=== PATIENT | female | born 1960 | race Hispanic/Latino ===

== ENCOUNTER 2018-09-30 12:09 | Inpatient (IN) | payer OTHER ==
[2018-09-30] MEDS ORDERED: Sodium Chloride 0.9% 1,000 ML IV ONE (12:27)
[2018-09-30 12:53] LABS: BASO # 0.1 K/uL (0.0-0.2); BASO % 0.4 % (0.0-2.0); LYMPH % 6.9 % (20.0-40.0); MEAN CELL VOLUME 89.6 fL (81.0-99.0); MEAN CORPUSCULAR HEMOGLOBIN 31.5 pg (27.0-31.0); MEAN CORPUSCULAR HGB CONC 35.2 g/dL (33.0-37.0); MONO # 0.8 K/uL (0.0-0.8); MONO % 5.8 % (0.0-10.0); NEUT # 12.2 K/uL (1.8-7.0); NEUT % 86.9 % (50.0-75.0); NRBC % 0.1 % (0.0-2.0); PLATELET COUNT 268 K/uL (130-400); RBC 5.38 Mil/uL (3.80-5.20); RED CELL DISTRIBUTION WIDTH 13.2 % (11.5-14.5)
[2018-09-30 12:54] LABS: WHITE BLOOD COUNT 14.1 K/uL (4.8-10.8)
--- NOTE | 2018-09-30 12:58 | C.PDOC ---
History Of Present Illness 58 y/o female,w/PMhx of diabetes, HTN, and colitis, presents to the ER complaining of multiple episodes of vomiting which began yesterday. Patient states that she went to her PMD 's office today. referred her to the ER for elevated blood pressure and blood sugar levels. She notes that her last bm was in her PMD's office today, the bm was small. Denies having fever,chills,CP,SOB nausea, and abdominal pain. Time Seen by Provider: 09/30/18 12:28 Chief Complaint (Nursing): High Blood Pressure History Per: Patient History/Exam Limitations: no limitations Onset/Duration Of Symptoms: Days Current Symptoms Are (Timing): Still Present Severity: Moderate Past Medical History Reviewed: Historical Data, Nursing Documentation, Vital Signs Vital Signs: Last Vital Signs Temp 97.6 F 09/30/18 12:22 Pulse 115 H 09/30/18 12:22 Resp 20 09/30/18 12:22 BP 223/93 H 09/30/18 12:22 Pulse Ox 99 09/30/18 12:22 - Medical History PMH: Diabetes, HTN, Hyperlipidemia Surgical History: No Surg Hx Family History: States: No Known Family Hx - Social History Hx Tobacco Use: No Hx Alcohol Use: No Hx Substance Use: No - Immunization History Hx Tetanus Toxoid Vaccination: No Hx Influenza Vaccination: No Hx Pneumococcal Vaccination: No Review Of Systems Except As Marked, All Systems Reviewed And Found Negative. Constitutional: Negative for: Fever, Chills Cardiovascular: Negative for: Chest Pain Respiratory: Negative for: Shortness of Breath Gastrointestinal: Positive for: Vomiting. Negative for: Abdominal Pain, Diarrhea Genitourinary: Negative for: Dysuria, Hematuria Physical Exam - Physical Exam Appears: Other (actively vomiting) Skin: Normal Color, Warm, Dry Head: Atraumatic, Normacephalic Eye(s): bilateral: Normal Inspection Nose: Normal Oral Mucosa: Moist Neck: Supple Chest: Symmetrical Cardiovascular: Rhythm Regular (with tachycardia) Respiratory: Normal Breath Sounds, No Rales, No Rhonchi, No Wheezing Gastrointestinal/Abdominal: Soft, No Tenderness, No Guarding, No Rebound Neurological/Psych: Oriented x3, Normal Speech ED Course And Treatment - Laboratory Results Result Diagrams: 10/04/18 08:15 03/31/19 08:15 ECG: Interpreted By Me, Viewed By Me ECG Rhythm: Sinus Tachycardia Interpretation Of ECG: Sinus Tachycardia with normal intervals, normal axises, and no ST/ T wave elevations/depressions Rate From EC O2 Sat by Pulse Oximetry: 99 (RA) Pulse Ox Interpretation: Normal - Other Rad CXR X-Ray: Viewed By Me, Read By Radiologist Interpretation: HISTORY: vomiting. COMPARISON: Chest x-ray performed 01/09/15. TECHNIQUE: Chest, one view. FINDINGS: LUNGS: No focal consolidation. Please note that chest x-ray has limited sensitivity for the detection of pulmonary masses. PLEURA: No significant pleural effusion identified. No definite pn eumothorax . CARDIOVASCULAR: Heart size appears within normal limits. No significant atherosclerotic calcification present. OSSEOUS STRUCTURES: Degenerative changes. Acromioclavicular arthropathy. VISUALIZED UPPER ABDOMEN: Elevation of the right hemidiaphragm. OTHER FINDINGS: None. IMPRESSION: No focal consolidation. - CT Scan/US CT- Abd & Pelv. Other Rad Studies (CT/US): Read By Radiologist, Radiology Report Reviewed CT/US Interpretation: Date of service: 09/30/2018. PROCEDURE: CT Abdomen and Pelvis with contrast. HISTORY: vomiting, elevated lipase. COMPARISON: None. TECHNIQUE: Contrast dose: 100 mL of Visipaque 320 intravenously. Axial and reformatted coronal and sagittal CT images of the abdomen and pelvis were obtained after IV contrast administration. Radiation dose: Total exam DLP = 670.16 mGy-cm. This CT exam was performed using one or more of the following dose reduction techniques: Automated exposure control, adjustment of the mA and/or kV according to patient size, and/or use of iterative reconstruction technique. FINDINGS: LOWER THORAX: No evidence of acute pathology at the lung bases. There is a diffuse thickening of the distal esophagus noted. LIVER: There it hepatic steatosis is noted. No evidence of discrete mass in the liver. The portal vein is patent. GALLBLADDER AND BILE DUCTS: No evidence of cholecystitis. PANCREAS: no CT evidence of pancreatitis. The pancreas is small in size. The main pancreatic duct is not dilated. SPLEEN: Unremarkable. ADRENALS: Unremarkable. No mass. KIDNEYS AND URETERS: Unremarkable. No hydronephrosis. No solid mass. VASCULATURE: Unremarkable. No aortic aneurysm. Foci of atherosclerotic calcification and mural plaque are noted in the abdominal aorta and iliac arteries. BOWEL: There is suspicious for diffuse large bowel wall thickening. Please correlate clinically for colitis. No evidence of high-grade bowel obstruction. The stomach is partially distended demonstrate mild to moderate diffuse wall thickening. APPENDIX: No evidence of appendicitis. PERITONEUM: Unremarkable. No free fluid. No free air. LYMPH NODES: Unremarkable. No enlarged lymph nodes. BLADDER: Unremarkable. REPRODU CTIVE: Unremarkable. BONES: No acute fracture. OTHER FINDINGS: None. IMPRESSION: No CT evidence of pancreatitis. Suspicious for diffuse large bowel wall thickening which may represent pancolitis. Please correlate clinically. No CT evidence of cholecystitis pancreatitis or high-grade small bowel obstruction. Medical Decision Making Medical Decision Making: Plan: --Labs --UA --ECG --CXR --IV Fluids Updates: 14:25 Case discussed with and . Patient will be admitted to ICU. 15:21 Patient's BP is 174/89. Disposition Counseled Patient/Family Regarding: Studies Performed, Diagnosis - Disposition Disposition: HOSPITALIZED Disposition Time: 14:25 Condition: IMPROVED - Clinical Impression Clinical Impression: DKA (diabetic ketoacidoses), Hypertension - Scribe Statement The provider has reviewed the documentation as recorded by the Scribe Radha Everettq Provider Attestation: All [facility] were at my direction and personally dictated by me. I have reviewed the chart and agree that the record accurately reflects my personal performance of the history, physical exam, medical decision making, and the department course for this patient. I have also personally directed, reviewed, and agree with the discharge instructions and disposition.
[2018-09-30 13:11] LABS: ALB/GLOB RATIO 1.6 (1.0-2.1); ALBUMIN 5.1 g/dL (3.5-5.0); ALT/SGPT 32 U/L (9-52); AST/SGOT 45 U/L (14-36); BLOOD UREA NITROGEN 19 mg/dL (7-17); CALCIUM 9.7 mg/dl (8.6-10.4); GFR NON-AFRICAN AMERICAN > 60
--- NOTE | 2018-09-30 13:16 | RAD ---
HISTORY: vomiting COMPARISON: Chest x-ray performed 01/09/15 TECHNIQUE: Chest, one view. FINDINGS: LUNGS: No focal consolidation. Please note that chest x-ray has limited sensitivity for the detection of pulmonary masses. PLEURA: No significant pleural effusion identified. No definite pneumothorax . CARDIOVASCULAR: Heart size appears within normal limits. No significant atherosclerotic calcification present. OSSEOUS STRUCTURES: Degenerative changes. Acromioclavicular arthropathy. VISUALIZED UPPER ABDOMEN: Elevation of the right hemidiaphragm. OTHER FINDINGS: None. IMPRESSION: No focal consolidation.
[2018-09-30 13:17] LABS: CK-MB 0.66 ng/mL (0.0-3.38)
[2018-09-30] MEDS ORDERED: (Novolin R) Insulin Human Regular 100 units/ml vial IVP ONE (13:19)
[2018-09-30 13:22] LABS: LYMPHOCYTE 8 % (20-40); MONOCYTE 4 % (0-10); NEUTROPHIL 88 % (50-75); PLATELET ESTIMATE NORMAL (NORMAL); TOTAL CELLS COUNTED 100
[2018-09-30 13:24] LABS: SQUAMOUS EPITHIAL 2 /hpf (0-5); URINE BILIRUBIN NEGATIVE (NEGATIVE); URINE BLOOD NEGATIVE (NEGATIVE); URINE CLARITY Clear (Clear); URINE COLOR Straw (YELLOW); URINE GLUCOSE (UA) 3+ mg/dL (Normal); URINE HYALINE CAST 0-2 /lpf (0-2); URINE LEUKOCYTE ESTERASE NEG Leu/uL (Negative); URINE PROTEIN 1+ mg/dL (NEGATIVE); URINE UROBILINOGEN NORMAL mg/dL (0.2-1.0)
[2018-09-30] MEDS ORDERED: (Novolin R) Insulin Human Regular 100 units/ml vial ONE (13:27)
[2018-09-30] MEDS ORDERED: Iodixanol 320 MG/ML 100 ML BOTTLE IV ONE (13:52)
[2018-09-30] MEDS ORDERED: SODIUM CHLORIDE 0.9% IV SCH (14:00)
[2018-09-30] MEDS ORDERED: INSULIN HUMAN REGULAR IV SCH (14:00)
[2018-09-30] MEDS ORDERED: Insulin Human Regular 100 UNIT in Sodium Chloride 0.9% 99 ML IV SCH ×2 (14:15→14:45)
--- NOTE | 2018-09-30 14:36 | CP.PCM.CON ---
<Shailesh Garner - Last Filed: 09/30/18 18:06> History of Present Illness - History of Present Illness History of Present Illness: ICU Consult Note for Dr. Miller 58 y o female with PMhx HTN, HLD, DM2, ulcerative colitis (dx 10 y prior), colonic polyps, presents to the ED with c/o nausea and greater than 15 episodes of vomiting occurring since last evening. Reason for ICU consult was for DKA. Reports episodes of diarrhea last evening but states she had normal forming BM this am. States that having 10 episodes of diarrhea/day is her baseline 2/2 to her ulcerative colitis. Unable to tolerate PO intake. States she went to her PMD Dr. Dumont this am with these complaints and that he instructed her to go straight to the ED for further eval. States he checked her urine sample in the clinic, positive for ketones. Pt reports last being hospitalized for hyperglycemia many years ago, denies recent admissions for DKA, reports compliance with home DM medications and checking her fingersticks regularly. Reports her has been sick at home for the past several days with cold- like symptoms. Denies fevers, chest pain, sob, abd pain, constipation, urinary complaints, or other symptoms. PMhx: as noted above PSurgHx: Bilateral tubal ligation Allergies: NKDA Home meds: Metformin 100 mg bid, Crestor 20 mg daily, Lisinopril 20 mg daily, Humalog 10 U tid with meals, Levemir 25 U at night, Mesalamine 1000 mg rectally once daily Fam hx: Father from stroke, Mom alive and well. Reports no fam hx of colon cancer. Soc hx: former 1.5 ppd cigarette smoker, quit 30 y ago; hx secondhand smoke exposure from mother; social EtOH use; denies illicit drug use; lives at home with son PMD: Dr. Dumont GI: Dr. Perez ([facility]) [facility]acy: [facility] Review of Systems - Constitutional Constitutional: Chills, Fatigue. absent: Fever - Cardiovascular Cardiovascular: absent: Chest Pain, Dyspnea, Dyspnea on Exertion, Edema, Lightheadedness, Palpitations, Syncope - Respiratory Respiratory: absent: Cough, Dyspnea, Wheezing - Gastrointestinal Gastrointestinal: Diarrhea, Nausea, Vomiting. absent: Abdominal Pain, Bloating, Change in Bowel Habits, Coffee Ground Emesis, Constipation, Heartburn, Melena - Genitourinary Genitourinary: absent: Difficulty Urinating, Dysuria - Musculoskeletal Musculoskeletal: absent: Muscle Weakness, Myalgias, Numbness, Tingling - Integumentary Integumentary: absent: Rash - Neurological Neurological: absent: Confusion, Dizziness, Headaches, Tremor Past Patient History - Past Medical History & Family History Past Medical History?: Yes - Past Social History Smoking Status: Former Smoker - CARDIAC Hx Hypertension: Yes - ENDOCRINE/METABOLIC Hx Diabetes Mellitus Type 2: Yes - MUSCULOSKELETAL/RHEUMATOLOGICAL Hx Falls: No - GASTROINTESTINAL Hx Colitis: Yes - PSYCHIATRIC Hx Substance Use: No - SURGICAL HISTORY Hx Tubal Ligation: Yes - ANESTHESIA Hx Anesthesia: Yes Hx Anesthesia Reactions: No Meds Allergies/Adverse Reactions: Allergies Allergy/AdvReac Type Severity Reaction Status Date / Time No Known Allergies Allergy Verified 12/31/14 21:34 - Medications Medications: Current Medications Insulin Human Regular 100 unit (/ Sodium Chloride) 100 mls @ 2 mls/hr IV .Q24H RUDDY Stop: 10/01/18 14:44 Physical Exam - Constitutional Appears: Non-toxic, No Acute Distress - Head Exam Head Exam: ATRAUMATIC, NORMOCEPHALIC - Eye Exam Eye Exam: EOMI, Normal appearance, PERRL - ENT Exam ENT Exam: Mucous Membranes Moist - Respiratory Exam Respiratory Exam: Clear to Auscultation Bilateral, NORMAL BREATHING PATTERN. absent: Rales, Rhonchi, Wheezes - Cardiovascular Exam Cardiovascular Exam: +S1, +S2. absent: Gallop, Rubs, Systolic Murmur - GI/Abdominal Exam GI & Abdominal Exam: Normal Bowel Sounds, Soft. absent: Distended, Organomegaly, Tenderness - Extremities Exam Extremities exam: Positive for: full ROM, normal capillary refill, normal inspection, pedal pulses present. Negative for: pedal edema - Neurological Exam Neurological exam: Alert, CN II-XII Intact, Oriented x3 - Skin Skin Exam: Dry, Intact, Warm Results - Vital Signs Recent Vital Signs: Last Vital Signs Temp 97.6 F 09/30/18 12:22 Pulse 115 H 09/30/18 12:22 Resp 20 09/30/18 12:22 BP 223/93 H 09/30/18 12:22 Pulse Ox 99 09/30/18 14:35 - Labs Result Diagrams: 09/30/18 16:40 09/30/18 16:40 Labs: Laboratory Results - last 24 hr 09/30/18 09/30/18 09/30/18 12:25 12:48 12:48 WBC 14.1 H D RBC 5.38 H Hgb 17.0 H D Hct 48.3 H MCV 89.6 MCH 31.5 H MCHC 35.2 RDW 13.2 Plt Count 268 MPV 9.0 Neut % (Auto) 86.9 H Lymph % (Auto) 6.9 L [place] % (Auto) 5.8 Eos % (Auto) 0.0 Baso % (Auto) 0.4 Neut # (Auto) 12.2 H Lymph # (Auto) 1.0 [place] # (Auto) 0.8 Eos # (Auto) 0.0 Baso # (Auto) 0.1 Neutrophils % (Manual) 88 H Lymphocytes % (Manual) 8 L Monocytes % (Manual) 4 Platelet Estimate Normal Sodium 133 Potassium 3.7 Chloride 91 L Carbon Dioxide 22 Anion Gap 23 H BUN 19 H Creatinine 0.7 Est GFR ( Amer) > 60 Est GFR (Non-Af Amer) > 60 POC Glucose (mg/dL) 430 H* Random Glucose 524 H* D Calcium 9.7 Total Bilirubin 1.0 AST 45 H ALT 32 Alkaline Phosphatase 126 Total Creatine Kinase 30 CK-MB (Mass) 0.66 Troponin I < 0.0120 Total Protein 8.2 Albumin 5.1 H D Globulin 3.1 Albumin/Globulin Ratio 1.6 Lipase Urine Color Urine Clarity Urine pH Ur Specific [place] Urine Protein Urine Glucose (UA) Urine Ketones Urine Blood Urine Nitrate Urine Bilirubin Urine Urobilinogen Ur Leukocyte Esterase Urine WBC (Auto) Urine RBC (Auto) Ur Squamous Epith Cells Hyaline Casts B-Hydroxybutyrate 1.97 H 09/30/18 09/30/18 09/30/18 12:55 13:08 14:28 WBC RBC Hgb Hct MCV MCH MCHC RDW Plt Count MPV Neut % (Auto) Lymph % (Auto) [place] % (Auto) Eos % (Auto) Baso % (Auto) Neut # (Auto) Lymph # (Auto) [place] # (Auto) Eos # (Auto) Baso # (Auto) Neutrophils % (Manual) Lymphocytes % (Manual) Monocytes % (Manual) Platelet Estimate Sodium Potassium Chloride Carbon Dioxide Anion Gap BUN Creatinine Est GFR ( Amer) Est GFR (Non-Af Amer) POC Glucose (mg/dL) 276 H Random Glucose Calcium Total Bilirubin AST ALT Alkaline Phosphatase Total Creatine Kinase CK-MB (Mass) Troponin I Total Protein Albumin Globulin Albumin/Globulin Ratio Lipase 359 H Urine Color Straw Urine Clarity Clear Urine pH 5.0 Ur Specific [place] 1.029 Urine Protein 1+ H Urine Glucose (UA) 3+ H Urine Ketones 2+ H Urine Blood Negative Urine Nitrate Negative Urine Bilirubin Negative Urine Urobilinogen Normal Ur Leukocyte Esterase Neg Urine WBC (Auto) < 1 Urine RBC (Auto) < 1 Ur Squamous Epith Cells 2 Hyaline Casts 0-2 B-Hydroxybutyrate Assessment & Plan - Assessment and Plan (Free Text) Assessment: 58 y o female with PMhx HTN, HLD, DM2, ulcerative colitis (dx 10 y prior), colonic polyps, presents to the ED with c/o nausea and greater than 15 episodes of vomiting occurring since last evening. Reason for ICU consult was for DKA. Admitted to ICU, insulin drip currently d/c'd after anion gap closed, on IVF. CT abd/pelvis on admission demonstrated pancolitis, GI consulted (Dr. Leon). Will continue to monitor. Plan: Neuro: -AAOx3, no gross deficits appreciated on exam -Cont to monitor Cardio: -Hypertensive during vomiting episodes, cont to trend -Resumed home PO meds for HTN -EKG on admission demonstrates sinus tachycardia, possible L atrial enlargement -Repeat EKG in am to eval interval change -Echo ordered -Trop neg on admission, ROMIs q8h pending, cont to trend Pulm: -Saturating well on room air -Maintain O2 sat > 92% -Cont to monitor, no acute issues at this time GI: -NPO on admission -AG closed with most recent BMP -Diet restarted, n/v resolved as per pt -1/2 NS @ 150 cc/hr with 40 mEq of K -Reglan prn for n/v -Abd/pelvis CT on admission demonstrating pancolitis -GI consulted (Dr. Leon), recs appreciated -Home med Mesalamine held on admission -Stool cxs, ova + parasites, C. diff pending -Blood, urine cxs pending -ESR, CRP pending -Lipase mildly elevated on admission, no evidence of pancreatitis on CT scan Heme: -H/H 13.4/39.4, stable, cont to trend -Leukocytosis on admission, may be reactive 2/2 DKA vs. pancolitis, cont to tr end Renal: -BUN/Cr 14/0.4 -Trend I's/O's -Hypokalemic on repeat BMP, replete as needed Endo: -DKA -AG closed with most recent BMP, cont to trend q4h -FS q1h -DM diet -Insulin drip d/c'd -Resumed ISS-med, Levemir 25 U sc hs -Hypoglycemic protocol -Cont to monitor -IVF as noted above PPX: -Protonix, Heparin sc q12h Pt seen, examined with, and plan discussed with Dr. Miller, attending physician. Shailesh Garner DO PGY-1, [employer] Pager #[phone] <Shivam Miller - Last Filed: 09/30/18 18:16> Meds - Medications Medications: Current Medications Dextrose (Dextrose 50% Inj) 0 ml IV STAT PRN; Protocol PRN Reason: Hypoglycemia Protocol Dextrose (Glutose 15) 0 gm PO ONCE PRN; Protocol PRN Reason: Hypoglycemia Protocol Glucagon (Glucagen Diagnostic Kit) 0 mg IM STAT PRN; Protocol PRN Reason: Hypoglycemia Protocol Heparin Sodium (Porcine) (Heparin) 5,000 units SC Q12H [facility] Last Admin: 09/30/18 16:41 Dose: 5,000 units Dextrose (Dextrose 5% In Water 1000 Ml) 1,000 mls @ 0 mls/hr IV .Q0M PRN; Protocol PRN Reason: Hypoglycemia Protocol Potassium Chloride (Potassium Chloride 20 Meq/100 Ml) 20 meq in 100 mls @ 50 mls/hr IVPB Q2H RUDDY Stop: 10/01/18 00:29 Potassium Chloride 40 meq/ (Sodium Chloride) 1,020 mls @ 150 mls/hr IV .Q6H48M RUDDY Insulin Aspart (Novolog) 0 unit SC Q6H RUDDY; Protocol Insulin Detemir (Levemir) 25 unit SC HS RUDDY Lisinopril (Zestril) 20 mg PO DAILY RUDDY Metoclopramide HCl (Reglan) 10 mg IVP Q6H PRN PRN Reason: Nausea/Vomiting Rosuvastatin Calcium (Crestor) 20 mg PO HS RUDDY Results - Vital Signs Recent Vital Signs: Last Vital Signs Temp 97.8 F 03/27/19 16:00 Pulse 91 H 09/30/18 16:10 Resp 19 09/30/18 16:10 BP 182/84 H 09/30/18 16:00 Pulse Ox 99 09/30/18 17:18 - Labs Result Diagrams: 09/30/18 16:40 09/30/18 16:40 Labs: Laboratory Results - last 24 hr 09/30/18 09/30/18 09/30/18 12:25 12:48 12:48 WBC 14.1 H D RBC 5.38 H Hgb 17.0 H D Hct 48.3 H MCV 89.6 MCH 31.5 H MCHC 35.2 RDW 13.2 Plt Count 268 MPV 9.0 Neut % (Auto) 86.9 H Lymph % (Auto) 6.9 L [place] % (Auto) 5.8 Eos % (Auto) 0.0 Baso % (Auto) 0.4 Neut # (Auto) 12.2 H Lymph # (Auto) 1.0 [place] # (Auto) 0.8 Eos # (Auto) 0.0 Baso # (Auto) 0.1 Neutrophils % (Manual) 88 H Lymphocytes % (Manual) 8 L Monocytes % (Manual) 4 Platelet Estimate Normal Puncture Site pCO2 pO2 HCO3 ABG pH ABG Total CO2 ABG O2 Saturation ABG Base Excess ABG Hemoglobin ABG Carboxyhemoglobin POC ABG HHb (Measured) ABG Methemoglobin Ryan Test Hgb O2 Saturation Sodium 133 Potassium 3.7 Chloride 91 L Carbon Dioxide 22 Anion Gap 23 H BUN 19 H Creatinine 0.7 Est GFR ( Amer) > 60 Est GFR (Non-Af Amer) > 60 POC Glucose (mg/dL) 430 H* Random Glucose 524 H* D Calcium 9.7 Total Bilirubin 1.0 AST 45 H ALT 32 Alkaline Phosphatase 126 Total Creatine Kinase 30 CK-MB (Mass) 0.66 Troponin I < 0.0120 C-Reactive Protein Total Protein 8.2 Albumin 5.1 H D Globulin 3.1 Albumin/Globulin Ratio 1.6 Lipase Urine Color Urine Clarity Urine pH Ur Specific [place] Urine Protein Urine Glucose (UA) Urine Ketones Urine Blood Urine Nitrate Urine Bilirubin Urine Urobilinogen Ur Leukocyte Esterase Urine WBC (Auto) Urine RBC (Auto) Ur Squamous Epith Cells Hyaline Casts B-Hydroxybutyrate 1.97 H Influenza Typ A,B (EIA) 09/30/18 09/30/18 09/30/18 12:55 13:08 14:28 WBC RBC Hgb Hct MCV MCH MCHC RDW Plt Count MPV Neut % (Auto) Lymph % (Auto) [place] % (Auto) Eos % (Auto) Baso % (Auto) Neut # (Auto) Lymph # (Auto) [place] # (Auto) Eos # (Auto) Baso # (Auto) Neutrophils % (Manual) Lymphocytes % (Manual) Monocytes % (Manual) Platelet Estimate Puncture Site pCO2 pO2 HCO3 ABG pH ABG Total CO2 ABG O2 Saturation ABG Base Excess ABG Hemoglobin ABG Carboxyhemoglobin POC ABG HHb (Measured) ABG Methemoglobin Ryan Test Hgb O2 Saturation Sodium Potassium Chloride Carbon Dioxide Anion Gap BUN Creatinine Est GFR ( Amer) Est GFR (Non-Af Amer) POC Glucose (mg/dL) 276 H Random Glucose Calcium Total Bilirubin AST ALT Alkaline Phosphatase Total Creatine Kinase CK-MB (Mass) Troponin I C-Reactive Protein Total Protein Albumin Globulin Albumin/Globulin Ratio Lipase 359 H Urine Color Straw Urine Clarity Clear Urine pH 5.0 Ur Specific [place] 1.029 Urine Protein 1+ H Urine Glucose (UA) 3+ H Urine Ketones 2+ H Urine Blood Negative Urine Nitrate Negative Urine Bilirubin Negative Urine Urobilinogen Normal Ur Leukocyte Esterase Neg Urine WBC (Auto) < 1 Urine RBC (Auto) < 1 Ur Squamous Epith Cells 2 Hyaline Casts 0-2 B-Hydroxybutyrate Influenza Typ A,B (EIA) 09/30/18 09/30/18 09/30/18 14:48 16:40 16:40 WBC RBC Hgb Hct MCV MCH MCHC RDW Plt Count MPV Neut % (Auto) Lymph % (Auto) [place] % (Auto) Eos % (Auto) Baso % (Auto) Neut # (Auto) Lymph # (Auto) [place] # (Auto) Eos # (Auto) Baso # (Auto) Neutrophils % (Manual) Lymphocytes % (Manual) Monocytes % (Manual) Platelet Estimate Puncture Site Lr pCO2 31 L pO2 84 HCO3 24.2 ABG pH 7.46 H ABG Total CO2 23.0 ABG O2 Saturation 97.7 ABG Base Excess -0.8 ABG Hemoglobin 15.5 ABG Carboxyhemoglobin 1.5 POC ABG HHb (Measured) 2.2 ABG Methemoglobin 1.0 Ryan Test Pos Hgb O2 Saturation 95.3 Sodium 138 Potassium 2.7 L Chloride 106 Carbon Dioxide 21 L Anion Gap 13 BUN 14 Creatinine 0.4 L Est GFR ( Amer) > 60 Est GFR (Non-Af Amer) > 60 POC Glucose (mg/dL) Random Glucose 231 H D Calcium 7.5 L Total Bilirubin AST ALT Alkaline Phosphatase Total Creatine Kinase 43 CK-MB (Mass) 0.77 Troponin I 0.0200 C-Reactive Protein Total Protein Albumin Globulin Albumin/Globulin Ratio Lipase Urine Color Urine Clarity Urine pH Ur Specific [place] Urine Protein Urine Glucose (UA) Urine Ketones Urine Blood Urine Nitrate Urine Bilirubin Urine Urobilinogen Ur Leukocyte Esterase Urine WBC (Auto) Urine RBC (Auto) Ur Squamous Epith Cells Hyaline Casts B-Hydroxybutyrate Influenza Typ A,B (EIA) Negative for flu a/b 09/30/18 09/30/18 09/30/18 16:40 16:40 17:17 WBC 13.5 H RBC 4.39 Hgb 13.4 D Hct 39.4 MCV 89.7 MCH 30.4 MCHC 33.9 RDW 13.1 Plt Count 210 MPV 8.6 Neut % (Auto) 80.8 H Lymph % (Auto) 10.1 L [place] % (Auto) 8.3 Eos % (Auto) 0.1 Baso % (Auto) 0.7 Neut # (Auto) 10.9 H Lymph # (Auto) 1.4 [place] # (Auto) 1.1 H Eos # (Auto) 0.0 Baso # (Auto) 0.1 Neutrophils % (Manual) Lymphocytes % (Manual) Monocytes % (Manual) Platelet Estimate Puncture Site pCO2 pO2 HCO3 ABG pH ABG Total CO2 ABG O2 Saturation ABG Base Excess ABG Hemoglobin ABG Carboxyhemoglobin POC ABG HHb (Measured) ABG Methemoglobin Ryan Test Hgb O2 Saturation Sodium Potassium Chloride Carbon Dioxide Anion Gap BUN Creatinine Est GFR ( Amer) Est GFR (Non-Af Amer) POC Glucose (mg/dL) 249 H Random Glucose Calcium Total Bilirubin AST ALT Alkaline Phosphatase Total Creatine Kinase CK-MB (Mass) Troponin I C-Reactive Protein 16.30 H Total Protein Albumin Globulin Albumin/Globulin Ratio Lipase Urine Color Urine Clarity Urine pH Ur Specific [place] Urine Protein Urine Glucose (UA) Urine Ketones Urine Blood Urine Nitrate Urine Bilirubin Urine Urobilinogen Ur Leukocyte Esterase Urine WBC (Auto) Urine RBC (Auto) Ur Squamous Epith Cells Hyaline Casts B-Hydroxybutyrate Influenza Typ A,B (EIA) Attending/Attestation - Attestation I have personally seen and examined this patient.: Yes I have fully participated in the care of the patient.: Yes I have reviewed all pertinent clinical information: Yes Notes (Text): 09/30/18 18:14 Patient seen and examined in the intensive care unit. 58-year-old female admitted with DKA Insulin drip and IV fluids Accu-Chek every hour Monitor potassium level and anion gap Seen by GI for severe colitis Continue present medications
--- NOTE | 2018-09-30 14:36 | CP.PCM.HP ---
<Shailesh Garner - Last Filed: 09/30/18 18:12> History of Present Illness - History of Present Illness History of Present Illness: 58 y o female with PMhx HTN, HLD, DM2, ulcerative colitis (dx 10 y prior), colonic polyps, presents to the ED with c/o nausea and greater than 15 episodes of vomiting occurring since last evening. Reports episodes of diarrhea last evening but states she had normal forming BM this am. States that having 10 episodes of diarrhea/day is her baseline 2/2 to her ulcerative colitis. Unable to tolerate PO intake. States she went to her PMD Dr. Dumont this am with these complaints and that he instructed her to go straight to the ED for further eval. States he checked her urine sample in the clinic, positive for ketones. Pt reports last being hospitalized for hyperglycemia many years ago, denies recent admissions for DKA, reports compliance with home DM medications and checking her fingersticks regularly. Reports her has been sick at home for the past several days with cold-like symptoms. Denies fevers, chest pain, sob, abd pain, constipation, urinary complaints, or other symptoms. PMhx: as noted above PSurgHx: Bilateral tubal ligation Allergies: NKDA Home meds: Metformin 100 mg bid, Crestor 20 mg daily, Lisinopril 20 mg daily, Humalog 10 U tid with meals, Levemir 25 U at night, Mesalamine 1000 mg rectally once daily Fam hx: Father from stroke, Mom alive and well, cigarette smoker. Reports no fam hx of colon cancer. Soc hx: former 1.5 ppd cigarette smoker, quit 30 y ago; hx secondhand smoke exposure from mother; social EtOH use; denies illicit drug use; lives at home with son PMD: Dr. Dumont GI: Dr. Perez ([facility]) [facility]acy: [facility] Present on Admission - Present on Admission Any Indicators Present on Admission: No History of DVT/PE: No History of Uncontrolled Diabetes: No Urinary Catheter: No Decubitus Ulcer Present: No Review of Systems - Constitutional Constitutional: Chills, Fatigue. absent: Fever, Headache - Cardiovascular Cardiovascular: absent: Chest Pain, Diaphoresis, Dyspnea on Exertion, Edema, Lightheadedness, Palpitations, Pedal Edema, Syncope - Respiratory Respiratory: absent: Cough, Dyspnea, Wheezing - Gastrointestinal Gastrointestinal: Diarrhea, Nausea, Vomiting. absent: Abdominal Pain, Change in Bowel Habits, Constipation - Genitourinary Genitourinary: absent: Difficulty Urinating, Dysuria - Musculoskeletal Musculoskeletal: absent: Myalgias, Numbness, Radiating Pain into Limb, Tingling - Integumentary Integumentary: absent: Rash - Neurological Neurological: absent: Confusion, Numbness, Tingling, Tremor - Endocrine Endocrine: Fatigue. absent: Polydipsia, Polyuria Past Patient History - Past Medical History & Family History Past Medical History?: Yes - Past Social History Smoking Status: Former Smoker - CARDIAC Hx Hypertension: Yes - ENDOCRINE/METABOLIC Hx Diabetes Mellitus Type 2: Yes - MUSCULOSKELETAL/RHEUMATOLOGICAL Hx Falls: No - GASTROINTESTINAL Hx Colitis: Yes - PSYCHIATRIC Hx Substance Use: No - SURGICAL HISTORY Hx Tubal Ligation: Yes - ANESTHESIA Hx Anesthesia: Yes Hx Anesthesia Reactions: No Meds Allergies/Adverse Reactions: Allergies Allergy/AdvReac Type Severity Reaction Status Date / Time No Known Allergies Allergy Verified 12/31/14 21:34 Physical Exam - Constitutional Appears: Non-toxic, No Acute Distress - Head Exam Head Exam: ATRAUMATIC, NORMOCEPHALIC - Eye Exam Eye Exam: EOMI, Normal appearance, PERRL - ENT Exam ENT Exam: Mucous Membranes Moist - Respiratory Exam Respiratory Exam: Clear to Auscultation Bilateral, NORMAL BREATHING PATTERN. absent: Rales, Rhonchi, Wheezes - Cardiovascular Exam Cardiovascular Exam: REGULAR RHYTHM, +S1, +S2. absent: Gallop, Rubs, Systolic Murmur - GI/Abdominal Exam GI & Abdominal Exam: Normal Bowel Sounds, Soft. absent: Distended, Organomegaly, Tenderness - Neurological Exam Neurological exam: Alert, CN II-XII Intact, Oriented x3 - Skin Skin Exam: Dry, Intact, Warm Results - Vital Signs Recent Vital Signs: Last Vital Signs Temp 97.6 F 09/30/18 12:22 Pulse 115 H 09/30/18 12:22 Resp 20 09/30/18 12:22 BP 223/93 H 09/30/18 12:22 Pulse Ox 99 09/30/18 14:35 - Labs Result Diagrams: 09/30/18 16:40 09/30/18 16:40 Labs: Laboratory Results - last 24 hr 09/30/18 09/30/18 09/30/18 12:25 12:48 12:48 WBC 14.1 H D RBC 5.38 H Hgb 17.0 H D Hct 48.3 H MCV 89.6 MCH 31.5 H MCHC 35.2 RDW 13.2 Plt Count 268 MPV 9.0 Neut % (Auto) 86.9 H Lymph % (Auto) 6.9 L Saline % (Auto) 5.8 Eos % (Auto) 0.0 Baso % (Auto) 0.4 Neut # (Auto) 12.2 H Lymph # (Auto) 1.0 Saline # (Auto) 0.8 Eos # (Auto) 0.0 Baso # (Auto) 0.1 Neutrophils % (Manual) 88 H Lymphocytes % (Manual) 8 L Monocytes % (Manual) 4 Platelet Estimate Normal Sodium 133 Potassium 3.7 Chloride 91 L Carbon Dioxide 22 Anion Gap 23 H BUN 19 H Creatinine 0.7 Est GFR ( Amer) > 60 Est GFR (Non-Af Amer) > 60 POC Glucose (mg/dL) 430 H* Random Glucose 524 H* D Calcium 9.7 Total Bilirubin 1.0 AST 45 H ALT 32 Alkaline Phosphatase 126 Total Creatine Kinase 30 CK-MB (Mass) 0.66 Troponin I < 0.0120 Total Protein 8.2 Albumin 5.1 H D Globulin 3.1 Albumin/Globulin Ratio 1.6 Lipase Urine Color Urine Clarity Urine pH Ur Specific Melrose Urine Protein Urine Glucose (UA) Urine Ketones Urine Blood Urine Nitrate Urine Bilirubin Urine Urobilinogen Ur Leukocyte Esterase Urine WBC (Auto) Urine RBC (Auto) Ur Squamous Epith Cells Hyaline Casts B-Hydroxybutyrate 1.97 H 09/30/18 09/30/18 09/30/18 12:55 13:08 14:28 WBC RBC Hgb Hct MCV MCH MCHC RDW Plt Count MPV Neut % (Auto) Lymph % (Auto) Saline % (Auto) Eos % (Auto) Baso % (Auto) Neut # (Auto) Lymph # (Auto) Saline # (Auto) Eos # (Auto) Baso # (Auto) Neutrophils % (Manual) Lymphocytes % (Manual) Monocytes % (Manual) Platelet Estimate Sodium Potassium Chloride Carbon Dioxide Anion Gap BUN Creatinine Est GFR ( Amer) Est GFR (Non-Af Amer) POC Glucose (mg/dL) 276 H Random Glucose Calcium Total Bilirubin AST ALT Alkaline Phosphatase Total Creatine Kinase CK-MB (Mass) Troponin I Total Protein Albumin Globulin Albumin/Globulin Ratio Lipase 359 H Urine Color Straw Urine Clarity Clear Urine pH 5.0 Ur Specific Melrose 1.029 Urine Protein 1+ H Urine Glucose (UA) 3+ H Urine Ketones 2+ H Urine Blood Negative Urine Nitrate Negative Urine Bilirubin Negative Urine Urobilinogen Normal Ur Leukocyte Esterase Neg Urine WBC (Auto) < 1 Urine RBC (Auto) < 1 Ur Squamous Epith Cells 2 Hyaline Casts 0-2 B-Hydroxybutyrate Assessment & Plan - Assessment and Plan (Free Text) Assessment: 58 y o female with PMhx HTN, HLD, DM2, ulcerative colitis (dx 10 y prior), colonic polyps, presents to the ED with c/o nausea and greater than 15 episodes of vomiting occurring since last evening. Admitted to ICU for DKA, may be 2/2 to pancolitis/?ulcerative colitis flare-up, insulin drip currently d/c'd after anion gap closed, on IVF. CT abd/pelvis on admission demonstrated pancolitis, GI consulted (Dr. Leon). Plan: DKA -May be 2/2 pancolitis, ?possible flare-up of ulcerative colitis -Pt compliant with outpatient insulin regimen, checks fingersticks regularly at home -FS 500s on ED presentation, trending down to 200s -FS initially q1h, spaced out to achs at this time, cont to trend -Started on insulin drip, d/c'd after anion gap closed -IVF 1/2 NS at 150 cc/hr with KCl at 40 mEq -Reglan prn for n/v -BMPs q4h -Replete electrolytes prn -DM diet restarted, home Levemir restarted -Home med Metformin held on admission -ISS - med -Hypoglycemic protocol -Rapid flu ordered -Blood, urine cxs pending -Leukocytosis on admission, may be reactive 2/2 DKA vs. colitis, cont to trend Hx ulcerative colitis -Ct abd/pelvis on admission demonstrates pancolitis, may be 2/2 to UC dx -GI consulted, Dr. Leon, recs appreciated -Home med Mesalamine held on admission -R/o infectious process -Stool cx, ova and parasites, C. diff pending -ESR, CRP pending -Lipase mildly elevated on admission, no evidence of pancreatitis on CT scan Hx HTN -C/w home med Lisinopril daily -Cont to trend bps, elevated possibly 2/2 to vomiting episodes in ED -Echo ordered due to abnormal EKG on admission that demonstrated sinus tachycardia and possible L atrial enlargement -Repeat EKG tomorrow am -Trop neg on admission, repeat ROMIs pending q8h Hx HLD -C/w home med Crestor PPX -Heparin, Protonix Pt seen, examined with, and plan discussed with Dr. Varner, attending physician. Shailesh Garner DO PGY-1, [employer] Supervisor Pager #[phone] <Dorcas Varner V - Last Filed: 09/30/18 22:27> Results - Vital Signs Recent Vital Signs: Last Vital Signs Temp 98.9 F 09/30/18 20:00 Pulse 86 09/30/18 20:20 Resp 23 09/30/18 20:20 BP 164/83 H 09/30/18 19:48 Pulse Ox 97 09/30/18 20:00 - Labs Result Diagrams: 09/30/18 16:40 09/30/18 16:40 Labs: Laboratory Results - last 24 hr 09/30/18 09/30/18 09/30/18 12:25 12:48 12:48 WBC 14.1 H D RBC 5.38 H Hgb 17.0 H D Hct 48.3 H MCV 89.6 MCH 31.5 H MCHC 35.2 RDW 13.2 Plt Count 268 MPV 9.0 Neut % (Auto) 86.9 H Lymph % (Auto) 6.9 L Saline % (Auto) 5.8 Eos % (Auto) 0.0 Baso % (Auto) 0.4 Neut # (Auto) 12.2 H Lymph # (Auto) 1.0 Saline # (Auto) 0.8 Eos # (Auto) 0.0 Baso # (Auto) 0.1 Neutrophils % (Manual) 88 H Lymphocytes % (Manual) 8 L Monocytes % (Manual) 4 Platelet Estimate Normal ESR Puncture Site pCO2 pO2 HCO3 ABG pH ABG Total CO2 ABG O2 Saturation ABG Base Excess ABG Hemoglobin ABG Carboxyhemoglobin POC ABG HHb (Measured) ABG Methemoglobin Ryan Test Hgb O2 Saturation Sodium 133 Potassium 3.7 Chloride 91 L Carbon Dioxide 22 Anion Gap 23 H BUN 19 H Creatinine 0.7 Est GFR ( Amer) > 60 Est GFR (Non-Af Amer) > 60 POC Glucose (mg/dL) 430 H* Random Glucose 524 H* D Calcium 9.7 Total Bilirubin 1.0 AST 45 H ALT 32 Alkaline Phosphatase 126 Total Creatine Kinase 30 CK-MB (Mass) 0.66 Troponin I < 0.0120 C-Reactive Protein Total Protein 8.2 Albumin 5.1 H D Globulin 3.1 Albumin/Globulin Ratio 1.6 Lipase Urine Color Urine Clarity Urine pH Ur Specific Melrose Urine Protein Urine Glucose (UA) Urine Ketones Urine Blood Urine Nitrate Urine Bilirubin Urine Urobilinogen Ur Leukocyte Esterase Urine WBC (Auto) Urine RBC (Auto) Ur Squamous Epith Cells Hyaline Casts B-Hydroxybutyrate 1.97 H Influenza Typ A,B (EIA) 09/30/18 09/30/18 09/30/18 12:48 12:55 13:08 WBC RBC Hgb Hct MCV MCH MCHC RDW Plt Count MPV Neut % (Auto) Lymph % (Auto) Saline % (Auto) Eos % (Auto) Baso % (Auto) Neut # (Auto) Lymph # (Auto) Saline # (Auto) Eos # (Auto) Baso # (Auto) Neutrophils % (Manual) Lymphocytes % (Manual) Monocytes % (Manual) Platelet Estimate ESR 5 Puncture Site pCO2 pO2 HCO3 ABG pH ABG Total CO2 ABG O2 Saturation ABG Base Excess ABG Hemoglobin ABG Carboxyhemoglobin POC ABG HHb (Measured) ABG Methemoglobin Ryan Test Hgb O2 Saturation Sodium Potassium Chloride Carbon Dioxide Anion Gap BUN Creatinine Est GFR ( Amer) Est GFR (Non-Af Amer) POC Glucose (mg/dL) Random Glucose Calcium Total Bilirubin AST ALT Alkaline Phosphatase Total Creatine Kinase CK-MB (Mass) Troponin I C-Reactive Protein Total Protein Albumin Globulin Albumin/Globulin Ratio Lipase 359 H Urine Color Straw Urine Clarity Clear Urine pH 5.0 Ur Specific Melrose 1.029 Urine Protein 1+ H Urine Glucose (UA) 3+ H Urine Ketones 2+ H Urine Blood Negative Urine Nitrate Negative Urine Bilirubin Negative Urine Urobilinogen Normal Ur Leukocyte Esterase Neg Urine WBC (Auto) < 1 Urine RBC (Auto) < 1 Ur Squamous Epith Cells 2 Hyaline Casts 0-2 B-Hydroxybutyrate Influenza Typ A,B (EIA) 09/30/18 09/30/18 09/30/18 14:28 14:48 16:40 WBC RBC Hgb Hct MCV MCH MCHC RDW Plt Count MPV Neut % (Auto) Lymph % (Auto) Saline % (Auto) Eos % (Auto) Baso % (Auto) Neut # (Auto) Lymph # (Auto) Saline # (Auto) Eos # (Auto) Baso # (Auto) Neutrophils % (Manual) Lymphocytes % (Manual) Monocytes % (Manual) Platelet Estimate ESR Puncture Site Lr pCO2 31 L pO2 84 HCO3 24.2 ABG pH 7.46 H ABG Total CO2 23.0 ABG O2 Saturation 97.7 ABG Base Excess -0.8 ABG Hemoglobin 15.5 ABG Carboxyhemoglobin 1.5 POC ABG HHb (Measured) 2.2 ABG Methemoglobin 1.0 Ryan Test Pos Hgb O2 Saturation 95.3 Sodium 138 Potassium 2.7 L Chloride 106 Carbon Dioxide 21 L Anion Gap 13 BUN 14 Creatinine 0.4 L Est GFR ( Amer) > 60 Est GFR (Non-Af Amer) > 60 POC Glucose (mg/dL) 276 H Random Glucose 231 H D Calcium 7.5 L Total Bilirubin AST ALT Alkaline Phosphatase Total Creatine Kinase 43 CK-MB (Mass) 0.77 Troponin I 0.0200 C-Reactive Protein Total Protein Albumin Globulin Albumin/Globulin Ratio Lipase Urine Color Urine Clarity Urine pH Ur Specific Melrose Urine Protein Urine Glucose (UA) Urine Ketones Urine Blood Urine Nitrate Urine Bilirubin Urine Urobilinogen Ur Leukocyte Esterase Urine WBC (Auto) Urine RBC (Auto) Ur Squamous Epith Cells Hyaline Casts B-Hydroxybutyrate Influenza Typ A,B (EIA) 09/30/18 09/30/18 09/30/18 16:40 16:40 16:40 WBC 13.5 H RBC 4.39 Hgb 13.4 D Hct 39.4 MCV 89.7 MCH 30.4 MCHC 33.9 RDW 13.1 Plt Count 210 MPV 8.6 Neut % (Auto) 80.8 H Lymph % (Auto) 10.1 L Saline % (Auto) 8.3 Eos % (Auto) 0.1 Baso % (Auto) 0.7 Neut # (Auto) 10.9 H Lymph # (Auto) 1.4 Saline # (Auto) 1.1 H Eos # (Auto) 0.0 Baso # (Auto) 0.1 Neutrophils % (Manual) Lymphocytes % (Manual) Monocytes % (Manual) Platelet Estimate ESR Puncture Site pCO2 pO2 HCO3 ABG pH ABG Total CO2 ABG O2 Saturation ABG Base Excess ABG Hemoglobin ABG Carboxyhemoglobin POC ABG HHb (Measured) ABG Methemoglobin Ryan Test Hgb O2 Saturation Sodium Potassium Chloride Carbon Dioxide Anion Gap BUN Creatinine Est GFR ( Amer) Est GFR (Non-Af Amer) POC Glucose (mg/dL) Random Glucose Calcium Total Bilirubin AST ALT Alkaline Phosphatase Total Creatine Kinase CK-MB (Mass) Troponin I C-Reactive Protein 16.30 H Total Protein Albumin Globulin Albumin/Globulin Ratio Lipase Urine Color Urine Clarity Urine pH Ur Specific [place] Urine Protein Urine Glucose (UA) Urine Ketones Urine Blood Urine Nitrate Urine Bilirubin Urine Urobilinogen Ur Leukocyte Esterase Urine WBC (Auto) Urine RBC (Auto) Ur Squamous Epith Cells Hyaline Casts B-Hydroxybutyrate Influenza Typ A,B (EIA) Negative for flu a/b 09/30/18 09/30/18 09/30/18 17:17 17:47 18:04 WBC RBC Hgb Hct MCV MCH MCHC RDW Plt Count MPV Neut % (Auto) Lymph % (Auto) Saline % (Auto) Eos % (Auto) Baso % (Auto) Neut # (Auto) Lymph # (Auto) Saline # (Auto) Eos # (Auto) Baso # (Auto) Neutrophils % (Manual) Lymphocytes % (Manual) Monocytes % (Manual) Platelet Estimate ESR Puncture Site pCO2 pO2 HCO3 ABG pH ABG Total CO2 ABG O2 Saturation ABG Base Excess ABG Hemoglobin ABG Carboxyhemoglobin POC ABG HHb (Measured) ABG Methemoglobin Ryan Test Hgb O2 Saturation Sodium Potassium Chloride Carbon Dioxide Anion Gap BUN Creatinine Est GFR ( Amer) Est GFR (Non-Af Amer) POC Glucose (mg/dL) 249 H 244 H Random Glucose Calcium Total Bilirubin AST ALT Alkaline Phosphatase Total Creatine Kinase CK-MB (Mass) Troponin I C-Reactive Protein Total Protein Albumin Globulin Albumin/Globulin Ratio Lipase Urine Color Urine Clarity Urine pH Ur Specific [place]rose Urine Protein Urine Glucose (UA) Urine Ketones Urine Blood Urine Nitrate Urine Bilirubin Urine Urobilinogen Ur Leukocyte Esterase Urine WBC (Auto) Urine RBC (Auto) Ur Squamous Epith Cells Hyaline Casts B-Hydroxybutyrate 0.79 H Influenza Typ A,B (EIA) 09/30/18 19:11 WBC RBC Hgb Hct MCV MCH MCHC RDW Plt Count MPV Neut % (Auto) Lymph % (Auto) Saline % (Auto) Eos % (Auto) Baso % (Auto) Neut # (Auto) Lymph # (Auto) Saline # (Auto) Eos # (Auto) Baso # (Auto) Neutrophils % (Manual) Lymphocytes % (Manual) Monocytes % (Manual) Platelet Estimate ESR Puncture Site pCO2 pO2 HCO3 ABG pH ABG Total CO2 ABG O2 Saturation ABG Base Excess ABG Hemoglobin ABG Carboxyhemoglobin POC ABG HHb (Measured) ABG Methemoglobin Ryan Test Hgb O2 Saturation Sodium Potassium Chloride Carbon Dioxide Anion Gap BUN Creatinine Est GFR ( Amer) Est GFR (Non-Af Amer) POC Glucose (mg/dL) 281 H Random Glucose Calcium Total Bilirubin AST ALT Alkaline Phosphatase Total Creatine Kinase CK-MB (Mass) Troponin I C-Reactive Protein Total Protein Albumin Globulin Albumin/Globulin Ratio Lipase Urine Color Urine Clarity Urine pH Ur Specific [place] Urine Protein Urine Glucose (UA) Urine Ketones Urine Blood Urine Nitrate Urine Bilirubin Urine Urobilinogen Ur Leukocyte Esterase Urine WBC (Auto) Urine RBC (Auto) Ur Squamous Epith Cells Hyaline Casts B-Hydroxybutyrate Influenza Typ A,B (EIA) Attending/Attestation - Attestation I have personally seen and examined this patient.: Yes I have fully participated in the care of the patient.: Yes I have reviewed all pertinent clinical information: Yes Notes (Text): This is 58 year old Female PMhx ulcerative colitis, diabetes, hypertension, lipid disorder, colonic polyps comes in for unable to take PO intake for one day, reports nonbloody nausea and vomitting; denies take out foods or change in diet, and reports her diarrhea has worsened compared to her 10x a day. Patient's son and daughter present at bedside. Patient reports she is type 2 diabetes, takes metformin, humalog, and lantus. She reports she didnt use her insulin yesterday because she didnt eat; reports she took Humalog 12 units this morning. Patient reports she sees a Dr. Madrigal in [facility]; gets a yearly endoscopy/colonoscopy who manages her severe ulcerative colitis. Patient reports she is currently on Entyvio; used to take Remcaid/Mesamine in the past. She reports baseline 10x diarrhea a day given her UC diagnoses. Patient has never had a cardiac workup before given she has cardiac risk factors, diabetes, hypertension, lipid disorder. initial troponin negative. patient is tachycardic and hypertensives but also is actively throwing up.
--- NOTE | 2018-09-30 14:42 | CT ---
Date of service: 09/30/2018 PROCEDURE: CT Abdomen and Pelvis with contrast HISTORY: vomiting, elevated lipase COMPARISON: None. TECHNIQUE: Contrast dose: 100 mL of Visipaque 320 intravenously. Axial and reformatted coronal and sagittal CT images of the abdomen and pelvis were obtained after IV contrast administration. Radiation dose: Total exam DLP = 670.16 mGy-cm. This CT exam was performed using one or more of the following dose reduction techniques: Automated exposure control, adjustment of the mA and/or kV according to patient size, and/or use of iterative reconstruction technique. FINDINGS: LOWER THORAX: No evidence of acute pathology at the lung bases. There is a diffuse thickening of the distal esophagus noted. LIVER: There it hepatic steatosis is noted. No evidence of discrete mass in the liver. The portal vein is patent. GALLBLADDER AND BILE DUCTS: No evidence of cholecystitis PANCREAS: no CT evidence of pancreatitis. The pancreas is small in size. The main pancreatic duct is not dilated. SPLEEN: Unremarkable. ADRENALS: Unremarkable. No mass. KIDNEYS AND URETERS: Unremarkable. No hydronephrosis. No solid mass. VASCULATURE: Unremarkable. No aortic aneurysm. Foci of atherosclerotic calcification and mural plaque are noted in the abdominal aorta and iliac arteries. BOWEL: There is suspicious for diffuse large bowel wall thickening. Please correlate clinically for colitis. No evidence of high-grade bowel obstruction. The stomach is partially distended demonstrate mild to moderate diffuse wall thickening. APPENDIX: No evidence of appendicitis. PERITONEUM: Unremarkable. No free fluid. No free air. LYMPH NODES: Unremarkable. No enlarged lymph nodes. BLADDER: Unremarkable. REPRODUCTIVE: Unremarkable. BONES: No acute fracture. OTHER FINDINGS: None. IMPRESSION: No CT evidence of pancreatitis. Suspicious for diffuse large bowel wall thickening which may represent pancolitis. Please correlate clinically. No CT evidence of cholecystitis pancreatitis or high-grade small bowel obstruction.
[2018-09-30 14:52] LABS: ABG ALLEN TEST POS; ARTERIAL BLOOD GAS HCO3 24.2 mmol/L (21-28); ARTERIAL BLOOD GAS HEMOGLOBIN 15.5 g/dL (11.7-17.4); ARTERIAL BLOOD GAS O2 SAT 97.7 % (95-98); ARTERIAL BLOOD GAS PCO2 31 mm/Hg (35-45); ARTERIAL BLOOD GAS PH 7.46 (7.35-7.45); ARTERIAL BLOOD GAS PO2 84 mm/Hg (80-100)
[2018-09-30] MEDS ORDERED: Dextrose 50% SYRINGE Inj (50 ml) IV PRN (15:28)
[2018-09-30] MEDS ORDERED: Glucagon Recombinant 1 mg Inj IM PRN (15:28)
[2018-09-30] MEDS ORDERED: Sodium Chloride 0.9% 1,000 ML IV SCH (15:30)
[2018-09-30] MEDS ORDERED: Insulin Human Regular 100 UNIT in Sodium Chloride 0.9% 99 ML IV PRN (15:46)
--- NOTE | 2018-09-30 16:11 | CP.PCM.CON ---
<Marian Lombardi - Last Filed: 09/30/18 16:54> History of Present Illness - History of Present Illness History of Present Illness: Gastroenterology Fellow/PGY6 Consult Note 58 year old female with PMH of refractory Ulcerative colitis (on Entyvio since 03/03/17 with partial response), Diabetes, HTN, HLD, Obesity presenting with vomiting and diarrhea. Patient notes sudden onset of intractable bilious vomiting and watery diarrhea estimated at over fifteen episodes respectively. Admits to use of Aleve once two days ago for left neck pain. Denies fever, chills, sweats, chest pain, shortness of breath, abdominal pain, hematemesis, melena, hematochezia, unintentional weight loss, sick contacts, change to medications, recent antibiotics/travel, sick contacts,change to dietary habits/eating out, regular NSAIDs use, eye redness/pain, skin rashes, back/hip pain, or kidney stones. Notes baseline bowel habits of semi-solid stools over ten times a day with intermittent mucoid stools. Uses Imodium three times a day at baseline for five years. Prior colonoscopy 08/18/2017 showed rectum severely inflamed with confluence of ulceration, abrupt normalization of tissue at rectosigmoid, and normal colon to ascending without cecum intubation due to poor prep. Ulcerative colitis History- diagnosed as ulcerative pancolitis summer 2014, improved left sided-colitis as of colonoscopy 08/2017 -followed by Dr. Perez at [place] -last office visit 08/17/18- fecal urgency, baseline over 6-10 stools daily, not a clinical trial candidate, plan to trial [facility] -Entyvio received monthly from 02/2017 through 06/2018, dosing changed to every two months 06/2018 with most recent dose 08/2018 -MRE 2017- normal small bowel, inflamed rectum, atrophic pancreas -prior multi-drug failure: tacrolimus, 6-MP, cyclosporine, xeljanz (03/2018), uceris foam, remicade, prednisone tapers, canasa, mesalamine derivatives, augmentin, flagyl, prior creon 11636 units per meal trial 04/2017 Family History- denies IBD, stomach cancer, colon cancer Social History- former tobacco abuse- 1.5ppdx 20 years, quit 30 years ago; social alcohol use, denies illicit drug use Surgical History- BTL Review of Systems - Review of Systems Review of Systems: 12-point review of systems negative except for as above Past Patient History - Past Medical History & Family History Past Medical History?: Yes - Past Social History Smoking Status: Former Smoker - CARDIAC Hx Hypertension: Yes - ENDOCRINE/METABOLIC Hx Diabetes Mellitus Type 2: Yes - MUSCULOSKELETAL/RHEUMATOLOGICAL Hx Falls: No - GASTROINTESTINAL Hx Colitis: Yes - PSYCHIATRIC Hx Substance Use: No - SURGICAL HISTORY Hx Tubal Ligation: Yes - ANESTHESIA Hx Anesthesia: Yes Hx Anesthesia Reactions: No Meds Allergies/Adverse Reactions: Allergies Allergy/AdvReac Type Severity Reaction Status Date / Time No Known Allergies Allergy Verified 12/31/14 21:34 - Medications Medications: Current Medications Dextrose (Dextrose 50% Inj) 0 ml IV STAT PRN; Protocol PRN Reason: Hypoglycemia Protocol Dextrose (Glutose 15) 0 gm PO ONCE PRN; Protocol PRN Reason: Hypoglycemia Protocol Glucagon (Glucagen Diagnostic Kit) 0 mg IM STAT PRN; Protocol PRN Reason: Hypoglycemia Protocol Heparin Sodium (Porcine) (Heparin) 5,000 units IVP Q12H [facility] Sodium Chloride (Sodium Chloride 0.9%) 1,000 mls @ 100 mls/hr IV .Q10H [facility] Dextrose (Dextrose 5% In Water 1000 Ml) 1,000 mls @ 0 mls/hr IV .Q0M PRN; Protocol PRN Reason: Hypoglycemia Protocol Insulin Human Regular 100 unit (/ Sodium Chloride) 100 mls @ 2 mls/hr IV .Q24H PRN; Protocol Lisinopril (Zestril) 20 mg PO DAILY [facility] Metoclopramide HCl (Reglan) 10 mg IVP Q6H PRN PRN Reason: Nausea/Vomiting Rosuvastatin Calcium (Crestor) 20 mg PO HS [facility] Physical Exam - Constitutional Appears: Non-toxic, No Acute Distress - Head Exam Head Exam: ATRAUMATIC, NORMOCEPHALIC - Eye Exam Eye Exam: EOMI, PERRL. absent: Scleral icterus Pupil Exam: PERRL. absent: Miosis, Mydriatic - ENT Exam ENT Exam: Mucous Membranes Dry, Normal Oropharynx - Respiratory Exam Respiratory Exam: Clear to Auscultation Bilateral. absent: Rales, Rhonchi, Wheezes - Cardiovascular Exam Cardiovascular Exam: Tachycardia, +S1, +S2. absent: Gallop, Rubs - GI/Abdominal Exam GI & Abdominal Exam: Hypoactive Bowel Sounds, Soft. absent: Distended, Firm, Guarding, Organomegaly, Rebound, Rigid, Tenderness - Extremities Exam Extremities exam: Positive for: pedal edema - Neurological Exam Neurological exam: Alert - Psychiatric Exam Psychiatric exam: Normal Affect, Normal Mood - Skin Skin Exam: Diaphoretic, Intact, Pallor, Warm Results - Vital Signs Recent Vital Signs: Last Vital Signs Temp 98.2 F 09/30/18 15:19 Pulse 94 H 09/30/18 15:19 Resp 20 09/30/18 12:22 BP 174/89 H 09/30/18 15:19 Pulse Ox 99 09/30/18 15:22 - Labs Result Diagrams: 09/30/18 12:48 09/30/18 12:48 Labs: Laboratory Results - last 24 hr 09/30/18 09/30/18 09/30/18 12:25 12:48 12:48 WBC 14.1 H D RBC 5.38 H Hgb 17.0 H D Hct 48.3 H MCV 89.6 MCH 31.5 H MCHC 35.2 RDW 13.2 Plt Count 268 MPV 9.0 Neut % (Auto) 86.9 H Lymph % (Auto) 6.9 L [place] % (Auto) 5.8 Eos % (Auto) 0.0 Baso % (Auto) 0.4 Neut # (Auto) 12.2 H Lymph # (Auto) 1.0 [place] # (Auto) 0.8 Eos # (Auto) 0.0 Baso # (Auto) 0.1 Neutrophils % (Manual) 88 H Lymphocytes % (Manual) 8 L Monocytes % (Manual) 4 Platelet Estimate Normal Puncture Site pCO2 pO2 HCO3 ABG pH ABG Total CO2 ABG O2 Saturation ABG Base Excess ABG Hemoglobin ABG Carboxyhemoglobin POC ABG HHb (Measured) ABG Methemoglobin Ryan Test Hgb O2 Saturation Sodium 133 Potassium 3.7 Chloride 91 L Carbon Dioxide 22 Anion Gap 23 H BUN 19 H Creatinine 0.7 Est GFR ( Amer) > 60 Est GFR (Non-Af Amer) > 60 POC Glucose (mg/dL) 430 H* Random Glucose 524 H* D Calcium 9.7 Total Bilirubin 1.0 AST 45 H ALT 32 Alkaline Phosphatase 126 Total Creatine Kinase 30 CK-MB (Mass) 0.66 Troponin I < 0.0120 Total Protein 8.2 Albumin 5.1 H D Globulin 3.1 Albumin/Globulin Ratio 1.6 Lipase Urine Color Urine Clarity Urine pH Ur Specific [place] Urine Protein Urine Glucose (UA) Urine Ketones Urine Blood Urine Nitrate Urine Bilirubin Urine Urobilinogen Ur Leukocyte Esterase Urine WBC (Auto) Urine RBC (Auto) Ur Squamous Epith Cells Hyaline Casts B-Hydroxybutyrate 1.97 H 09/30/18 09/30/18 09/30/18 12:55 13:08 14:28 WBC RBC Hgb Hct MCV MCH MCHC RDW Plt Count MPV Neut % (Auto) Lymph % (Auto) [place] % (Auto) Eos % (Auto) Baso % (Auto) Neut # (Auto) Lymph # (Auto) [place] # (Auto) Eos # (Auto) Baso # (Auto) Neutrophils % (Manual) Lymphocytes % (Manual) Monocytes % (Manual) Platelet Estimate Puncture Site pCO2 pO2 HCO3 ABG pH ABG Total CO2 ABG O2 Saturation ABG Base Excess ABG Hemoglobin ABG Carboxyhemoglobin POC ABG HHb (Measured) ABG Methemoglobin Ryan Test Hgb O2 Saturation Sodium Potassium Chloride Carbon Dioxide Anion Gap BUN Creatinine Est GFR ( Amer) Est GFR (Non-Af Amer) POC Glucose (mg/dL) 276 H Random Glucose Calcium Total Bilirubin AST ALT Alkaline Phosphatase Total Creatine Kinase CK-MB (Mass) Troponin I Total Protein Albumin Globulin Albumin/Globulin Ratio Lipase 359 H Urine Color Straw Urine Clarity Clear Urine pH 5.0 Ur Specific [place] 1.029 Urine Protein 1+ H Urine Glucose (UA) 3+ H Urine Ketones 2+ H Urine Blood Negative Urine Nitrate Negative Urine Bilirubin Negative Urine Urobilinogen Normal Ur Leukocyte Esterase Neg Urine WBC (Auto) < 1 Urine RBC (Auto) < 1 Ur Squamous Epith Cells 2 Hyaline Casts 0-2 B-Hydroxybutyrate 09/30/18 14:48 WBC RBC Hgb Hct MCV MCH MCHC RDW Plt Count MPV Neut % (Auto) Lymph % (Auto) [place] % (Auto) Eos % (Auto) Baso % (Auto) Neut # (Auto) Lymph # (Auto) [place] # (Auto) Eos # (Auto) Baso # (Auto) Neutrophils % (Manual) Lymphocytes % (Manual) Monocytes % (Manual) Platelet Estimate Puncture Site Lr pCO2 31 L pO2 84 HCO3 24.2 ABG pH 7.46 H ABG Total CO2 23.0 ABG O2 Saturation 97.7 ABG Base Excess -0.8 ABG Hemoglobin 15.5 ABG Carboxyhemoglobin 1.5 POC ABG HHb (Measured) 2.2 ABG Methemoglobin 1.0 Ryan Test Pos Hgb O2 Saturation 95.3 Sodium Potassium Chloride Carbon Dioxide Anion Gap BUN Creatinine Est GFR ( Amer) Est GFR (Non-Af Amer) POC Glucose (mg/dL) Random Glucose Calcium Total Bilirubin AST ALT Alkaline Phosphatase Total Creatine Kinase CK-MB (Mass) Troponin I Total Protein Albumin Globulin Albumin/Globulin Ratio Lipase Urine Color Urine Clarity Urine pH Ur Specific [place]ior Urine Protein Urine Glucose (UA) Urine Ketones Urine Blood Urine Nitrate Urine Bilirubin Urine Urobilinogen Ur Leukocyte Esterase Urine WBC (Auto) Urine RBC (Auto) Ur Squamous Epith Cells Hyaline Casts B-Hydroxybutyrate Assessment & Plan - Assessment and Plan (Free Text) Assessment: 58 year old female with PMH of Ulcerative colitis on Entyvio (diagnosed ten years ago, followed by Dr. Perez at [place]), Diabetes, HTN, HLD, Obesity presenting with vomiting and diarrhea. Active treatment of DKA with CT A/P showing concern for pancolitis. Prior colonoscopy 08/2017. Plan: -obtain stool studies to rule out infectious diarrhea- Cdiff, stool culture, O&P -obtain ESR, CRP -patient on immunosuppressive biologic therapy with Entyvio-last dose 08/2018 - coincides with first dose at a two month dosing frequency- -patient endorses frequency change due to insurance coverage with previous monthly dosing frequency -high risk for Cdiff with IBD history and Entyvio use -supportive care- anti-emetics, PPI ACB -continue IVFs -NPO, clear liquid diet as tolerated -ICU managing - DKA -will follow clinical course <Jonatan Leon Y - Last Filed: 09/30/18 18:11> Meds - Medications Medications: Current Medications Dextrose (Dextrose 50% Inj) 0 ml IV STAT PRN; Protocol PRN Reason: Hypoglycemia Protocol Dextrose (Glutose 15) 0 gm PO ONCE PRN; Protocol PRN Reason: Hypoglycemia Protocol Glucagon (Glucagen Diagnostic Kit) 0 mg IM STAT PRN; Protocol PRN Reason: Hypoglycemia Protocol Heparin Sodium (Porcine) (Heparin) 5,000 units SC Q12H [facility] Last Admin: 09/30/18 16:41 Dose: 5,000 units Dextrose (Dextrose 5% In Water 1000 Ml) 1,000 mls @ 0 mls/hr IV .Q0M PRN; Protocol PRN Reason: Hypoglycemia Protocol Potassium Chloride (Potassium Chloride 20 Meq/100 Ml) 20 meq in 100 mls @ 50 mls/hr IVPB Q2H [facility] Stop: 10/01/18 00:29 Potassium Chloride 40 meq/ (Sodium Chloride) 1,020 mls @ 150 mls/hr IV .Q6H48M [facility] Insulin Aspart (Novolog) 0 unit SC Q6H [facility]; Protocol Insulin Detemir (Levemir) 25 unit SC HS [facility] Lisinopril (Zestril) 20 mg PO DAILY [facility] Metoclopramide HCl (Reglan) 10 mg IVP Q6H PRN PRN Reason: Nausea/Vomiting Rosuvastatin Calcium (Crestor) 20 mg PO HS [facility] Results - Vital Signs Recent Vital Signs: Last Vital Signs Temp 97.8 F 09/30/18 16:00 Pulse 91 H 09/30/18 16:10 Resp 19 09/30/18 16:10 BP 182/84 H 09/30/18 16:00 Pulse Ox 99 09/30/18 17:18 - Labs Result Diagrams: 09/30/18 16:40 09/30/18 16:40 Labs: Laboratory Results - last 24 hr 09/30/18 09/30/18 09/30/18 12:25 12:48 12:48 WBC 14.1 H D RBC 5.38 H Hgb 17.0 H D Hct 48.3 H MCV 89.6 MCH 31.5 H MCHC 35.2 RDW 13.2 Plt Count 268 MPV 9.0 Neut % (Auto) 86.9 H Lymph % (Auto) 6.9 L [place] % (Auto) 5.8 Eos % (Auto) 0.0 Baso % (Auto) 0.4 Neut # (Auto) 12.2 H Lymph # (Auto) 1.0 [place] # (Auto) 0.8 Eos # (Auto) 0.0 Baso # (Auto) 0.1 Neutrophils % (Manual) 88 H Lymphocytes % (Manual) 8 L Monocytes % (Manual) 4 Platelet Estimate Normal Puncture Site pCO2 pO2 HCO3 ABG pH ABG Total CO2 ABG O2 Saturation ABG Base Excess ABG Hemoglobin ABG Carboxyhemoglobin POC ABG HHb (Measured) ABG Methemoglobin Ryan Test Hgb O2 Saturation Sodium 133 Potassium 3.7 Chloride 91 L Carbon Dioxide 22 Anion Gap 23 H BUN 19 H Creatinine 0.7 Est GFR ( Amer) > 60 Est GFR (Non-Af Amer) > 60 POC Glucose (mg/dL) 430 H* Random Glucose 524 H* D Calcium 9.7 Total Bilirubin 1.0 AST 45 H ALT 32 Alkaline Phosphatase 126 Total Creatine Kinase 30 CK-MB (Mass) 0.66 Troponin I < 0.0120 C-Reactive Protein Total Protein 8.2 Albumin 5.1 H D Globulin 3.1 Albumin/Globulin Ratio 1.6 Lipase Urine Color Urine Clarity Urine pH Ur Specific [place] Urine Protein Urine Glucose (UA) Urine Ketones Urine Blood Urine Nitrate Urine Bilirubin Urine Urobilinogen Ur Leukocyte Esterase Urine WBC (Auto) Urine RBC (Auto) Ur Squamous Epith Cells Hyaline Casts B-Hydroxybutyrate 1.97 H Influenza Typ A,B (EIA) 09/30/18 09/30/18 09/30/18 12:55 13:08 14:28 WBC RBC Hgb Hct MCV MCH MCHC RDW Plt Count MPV Neut % (Auto) Lymph % (Auto) [place] % (Auto) Eos % (Auto) Baso % (Auto) Neut # (Auto) Lymph # (Auto) [place] # (Auto) Eos # (Auto) Baso # (Auto) Neutrophils % (Manual) Lymphocytes % (Manual) Monocytes % (Manual) Platelet Estimate Puncture Site pCO2 pO2 HCO3 ABG pH ABG Total CO2 ABG O2 Saturation ABG Base Excess ABG Hemoglobin ABG Carboxyhemoglobin POC ABG HHb (Measured) ABG Methemoglobin Ryan Test Hgb O2 Saturation Sodium Potassium Chloride Carbon Dioxide Anion Gap BUN Creatinine Est GFR ( Amer) Est GFR (Non-Af Amer) POC Glucose (mg/dL) 276 H Random Glucose Calcium Total Bilirubin AST ALT Alkaline Phosphatase Total Creatine Kinase CK-MB (Mass) Troponin I C-Reactive Protein Total Protein Albumin Globulin Albumin/Globulin Ratio Lipase 359 H Urine Color Straw Urine Clarity Clear Urine pH 5.0 Ur Specific [place] 1.029 Urine Protein 1+ H Urine Glucose (UA) 3+ H Urine Ketones 2+ H Urine Blood Negative Urine Nitrate Negative Urine Bilirubin Negative Urine Urobilinogen Normal Ur Leukocyte Esterase Neg Urine WBC (Auto) < 1 Urine RBC (Auto) < 1 Ur Squamous Epith Cells 2 Hyaline Casts 0-2 B-Hydroxybutyrate Influenza Typ A,B (EIA) 09/30/18 09/30/18 09/30/18 14:48 16:40 16:40 WBC RBC Hgb Hct MCV MCH MCHC RDW Plt Count MPV Neut % (Auto) Lymph % (Auto) [place] % (Auto) Eos % (Auto) Baso % (Auto) Neut # (Auto) Lymph # (Auto) [place] # (Auto) Eos # (Auto) Baso # (Auto) Neutrophils % (Manual) Lymphocytes % (Manual) Monocytes % (Manual) Platelet Estimate Puncture Site Lr pCO2 31 L pO2 84 HCO3 24.2 ABG pH 7.46 H ABG Total CO2 23.0 ABG O2 Saturation 97.7 ABG Base Excess -0.8 ABG Hemoglobin 15.5 ABG Carboxyhemoglobin 1.5 POC ABG HHb (Measured) 2.2 ABG Methemoglobin 1.0 Ryan Test Pos Hgb O2 Saturation 95.3 Sodium 138 Potassium 2.7 L Chloride 106 Carbon Dioxide 21 L Anion Gap 13 BUN 14 Creatinine 0.4 L Est GFR ( Amer) > 60 Est GFR (Non-Af Amer) > 60 POC Glucose (mg/dL) Random Glucose 231 H D Calcium 7.5 L Total Bilirubin AST ALT Alkaline Phosphatase Total Creatine Kinase 43 CK-MB (Mass) 0.77 Troponin I 0.0200 C-Reactive Protein Total Protein Albumin Globulin Albumin/Globulin Ratio Lipase Urine Color Urine Clarity Urine pH Ur Specific [place] Urine Protein Urine Glucose (UA) Urine Ketones Urine Blood Urine Nitrate Urine Bilirubin Urine Urobilinogen Ur Leukocyte Esterase Urine WBC (Auto) Urine RBC (Auto) Ur Squamous Epith Cells Hyaline Casts B-Hydroxybutyrate Influenza Typ A,B (EIA) Negative for flu a/b 09/30/18 09/30/18 09/30/18 16:40 16:40 17:17 WBC 13.5 H RBC 4.39 Hgb 13.4 D Hct 39.4 MCV 89.7 MCH 30.4 MCHC 33.9 RDW 13.1 Plt Count 210 MPV 8.6 Neut % (Auto) 80.8 H Lymph % (Auto) 10.1 L [place] % (Auto) 8.3 Eos % (Auto) 0.1 Baso % (Auto) 0.7 Neut # (Auto) 10.9 H Lymph # (Auto) 1.4 [place] # (Auto) 1.1 H Eos # (Auto) 0.0 Baso # (Auto) 0.1 Neutrophils % (Manual) Lymphocytes % (Manual) Monocytes % (Manual) Platelet Estimate Puncture Site pCO2 pO2 HCO3 ABG pH ABG Total CO2 ABG O2 Saturation ABG Base Excess ABG Hemoglobin ABG Carboxyhemoglobin POC ABG HHb (Measured) ABG Methemoglobin Ryan Test Hgb O2 Saturation Sodium Potassium Chloride Carbon Dioxide Anion Gap BUN Creatinine Est GFR ( Amer) Est GFR (Non-Af Amer) POC Glucose (mg/dL) 249 H Random Glucose Calcium Total Bilirubin AST ALT Alkaline Phosphatase Total Creatine Kinase CK-MB (Mass) Troponin I C-Reactive Protein 16.30 H Total Protein Albumin Globulin Albumin/Globulin Ratio Lipase Urine Color Urine Clarity Urine pH Ur Specific [place] Urine Protein Urine Glucose (UA) Urine Ketones Urine Blood Urine Nitrate Urine Bilirubin Urine Urobilinogen Ur Leukocyte Esterase Urine WBC (Auto) Urine RBC (Auto) Ur Squamous Epith Cells Hyaline Casts B-Hydroxybutyrate Influenza Typ A,B (EIA) Attending/Attestation - Attestation I have personally seen and examined this patient.: Yes I have fully participated in the care of the patient.: Yes I have reviewed all pertinent clinical information: Yes Notes (Text): 09/30/18 18:04 I have seen and examined patient with GI fellow. Agree with above documentation with the following additions. In brief, this is a 58 year old female with history of ulcerative colitis (currently maintained on entyvio), DM, HTN, hyperlipidemia, obesity who presents to hospital with complaint of vomiting and diarrhea. She reports to sudden symptom onset yesterday, though even at baseline patient typically has 6-8 loose bowel movements daily. She carries a history of complex inflammatory bowel disease which has been refractory to multiple attempted biologic and immunomodulator therapies including cyclosporine. She is followed by Dr. Perez at [place] with planned next office appointment next month. On arrival to hospital she was found to have significantly elevated blood glucose, currently seen in intensive care unit being managed for DKA. She denies abdominal pain, fever/chills, weight loss, rectal bleeding. She has not had a bowel movement since yesterday, though vomiting persists. She had a colonoscopy in August 2017 which showed active left sided disease. Treatment refractory UC DM/HTN Hyperlipidemia Obesity Vomiting, diarrhea - likely related to acute DKA - NPO - Continue with IVF hydration therapy, supportive care - Insulin management as per critical care team, close monitoring of blood glucose - Anti-emetic therapy PRN - Obtain CRP, fecal calprotectin - Obtain stool studies to rule out infectious source - No clinical indication for antibiotic or steroid use at this time, will continue to monitor patient clinical course
[2018-09-30] MEDS ORDERED: Labetalol 5mg/ml (4ml) IVP STA (16:22)
[2018-09-30 16:46] LABS: BASO # 0.1 K/uL (0.0-0.2); BASO % 0.7 % (0.0-2.0); EOS % 0.1 % (0.0-4.0); HEMOGLOBIN 13.4 g/dL (11.0-16.0); LYMPH # 1.4 K/uL (1.0-4.3); LYMPH % 10.1 % (20.0-40.0); MEAN CELL VOLUME 89.7 fL (81.0-99.0); MEAN CORPUSCULAR HEMOGLOBIN 30.4 pg (27.0-31.0); MEAN CORPUSCULAR HGB CONC 33.9 g/dL (33.0-37.0); MEAN PLATELET VOLUME 8.6 fL (7.2-11.7); MONO # 1.1 K/uL (0.0-0.8); MONO % 8.3 % (0.0-10.0); NEUT # 10.9 K/uL (1.8-7.0); NEUT % 80.8 % (50.0-75.0); NRBC % 0.1 % (0.0-2.0); RBC 4.39 Mil/uL (3.80-5.20); RED CELL DISTRIBUTION WIDTH 13.1 % (11.5-14.5); WHITE BLOOD COUNT 13.5 K/uL (4.8-10.8)
[2018-09-30 17:14] LABS: CK-MB 0.77 ng/mL (0.0-3.38)
[2018-09-30 17:15] LABS: BLOOD UREA NITROGEN 14 mg/dL (7-17); CALCIUM 7.5 mg/dl (8.6-10.4); GFR NON-AFRICAN AMERICAN > 60
[2018-09-30] MEDS ORDERED: Potassium Chloride 40 MEQ in Dextrose 5%/0.9% NS 1,000 ML IV SCH ×2 (17:20→17:30)
[2018-09-30] MEDS ORDERED: Potassium Chloride 20 mEq ER Tab PO SCH (17:45)
[2018-09-30] MEDS ORDERED: Potassium Chl 40 mEq in D5-1/2 1,000 ML IV SCH (17:45)
[2018-09-30] MEDS ORDERED: (Novolog) Insulin Aspart, Recombinant 100 u/ml 10 ml vial SC SCH (18:00)
[2018-09-30] MEDS: Potassium Chloride 40 MEQ in Sodium Chloride 0.45% 1,000 ML IV SCH (18:15)
[2018-09-30] MEDS: Insulin Detemir 100 units/ml Vial (Levemir) SC SCH (21:53)
[2018-09-30] MEDS: (Novolog) Insulin Aspart, Recombinant 100 u/ml 10 ml vial SC SCH (21:59)
[2018-10-01] MEDS: Potassium Chloride 40 MEQ in Sodium Chloride 0.45% 1,000 ML IV SCH ×2 (01:30→08:58)
[2018-10-01 05:04] LABS: BASO # 0.1 K/uL (0.0-0.2); BASO % 0.3 % (0.0-2.0); EOS % 0.2 % (0.0-4.0); HEMOGLOBIN 15.4 g/dL (11.0-16.0); LYMPH % 10.7 % (20.0-40.0); MEAN CELL VOLUME 90.1 fL (81.0-99.0); MEAN CORPUSCULAR HEMOGLOBIN 30.7 pg (27.0-31.0); MEAN CORPUSCULAR HGB CONC 34.1 g/dL (33.0-37.0); MEAN PLATELET VOLUME 8.6 fL (7.2-11.7); MONO # 1.7 K/uL (0.0-0.8); MONO % 9.2 % (0.0-10.0); NEUT % 79.6 % (50.0-75.0); RBC 5.01 Mil/uL (3.80-5.20); RED CELL DISTRIBUTION WIDTH 13.3 % (11.5-14.5); WHITE BLOOD COUNT 18.9 K/uL (4.8-10.8)
[2018-10-01 05:43] LABS: CK-MB 0.95 ng/mL (0.0-3.38)
[2018-10-01 06:05] LABS: ALB/GLOB RATIO 2.2 (1.0-2.1); ALBUMIN 5.1 g/dL (3.5-5.0); ALT/SGPT 33 U/L (9-52); AST/SGOT 32 U/L (14-36); BLOOD UREA NITROGEN 12 mg/dL (7-17); CALCIUM 8.9 mg/dl (8.6-10.4); GFR NON-AFRICAN AMERICAN > 60
--- NOTE | 2018-10-01 08:23 | CP.PCM.PN ---
<Marian Lombardi - Last Filed: 10/01/18 08:16> Subjective - Date & Time of Evaluation Date of Evaluation: 10/01/18 Time of Evaluation: 08:16 - Subjective Subjective: Gastroenterology Fellow/PGY6 Progress Note Patient notes two episodes of bilious vomiting and watery diarrhea. Tolerating sips of liquids. Denies abdominal pain. A 12-point review of systems negative except for as above. Objective - Vital Signs/Intake and Output Vital Signs (last 24 hours): Temp Pulse Resp BP Pulse Ox 98.6 F 79 22 158/72 H 97 10/01/18 04:00 10/01/18 06:00 10/01/18 06:00 10/01/18 05:48 10/01/18 06:00 Intake and Output: 10/01/18 10/01/18 06:59 18:59 Intake Total 2000 Output Total 701 Balance 1299 - Medications Medications: Current Medications Dextrose (Dextrose 50% Inj) 0 ml IV STAT PRN; Protocol PRN Reason: Hypoglycemia Protocol Dextrose (Glutose 15) 0 gm PO ONCE PRN; Protocol PRN Reason: Hypoglycemia Protocol Glucagon (Glucagen Diagnostic Kit) 0 mg IM STAT PRN; Protocol PRN Reason: Hypoglycemia Protocol Heparin Sodium (Porcine) (Heparin) 5,000 units SC Q12H [facility] Last Admin: 10/01/18 04:27 Dose: 5,000 units Dextrose (Dextrose 5% In Water 1000 Ml) 1,000 mls @ 0 mls/hr IV .Q0M PRN; Protocol PRN Reason: Hypoglycemia Protocol Potassium Chloride 40 meq/ (Sodium Chloride) 1,020 mls @ 150 mls/hr IV .Q6H48M [facility] Last Admin: 10/01/18 01:30 Dose: 150 mls/hr Insulin Aspart (Novolog) 0 unit SC ACHS [facility]; Protocol Last Admin: 09/30/18 21:59 Dose: Not Given Insulin Detemir (Levemir) 25 unit SC [facility] Last Admin: 09/30/18 21:53 Dose: 25 u Lisinopril (Zestril) 20 mg PO DAILY [facility] Metoclopramide HCl (Reglan) 10 mg IVP Q6H PRN PRN Reason: Nausea/Vomiting Last Admin: 10/01/18 04:31 Dose: 10 mg Rosuvastatin Calcium (Crestor) 20 mg PO [facility] Last Admin: 09/30/18 21:53 Dose: 20 mg - Labs Labs: 10/01/18 05:00 10/01/18 05:00 - Constitutional Appears: Non-toxic, No Acute Distress - Head Exam Head Exam: ATRAUMATIC, NORMOCEPHALIC - Eye Exam Eye Exam: EOMI, PERRL. absent: Scleral icterus Pupil Exam: absent: Miosis, Mydriatic - ENT Exam ENT Exam: Mucous Membranes Moist, Normal Oropharynx - Neck Exam Neck Exam: Full ROM, Normal Inspection - Respiratory Exam Respiratory Exam: Clear to Ausculation Bilateral. absent: Rales, Rhonchi, Wheezes - Cardiovascular Exam Cardiovascular Exam: RRR, +S1, +S2. absent: Gallop, Rubs - GI/Abdominal Exam GI & Abdominal Exam: Soft, Normal Bowel Sounds. absent: Distended, Firm, Guarding, Rigid, Tenderness, Organomegaly, Rebound - Rectal Exam Rectal Exam: Black Stool. absent: Fecal Impaction - Extremities Exam Extremities Exam: Normal Inspection, Pedal Edema - Neurological Exam Neurological Exam: Alert, Awake - Psychiatric Exam Psychiatric exam: Normal Affect, Normal Mood - Skin Skin Exam: Dry, Intact, Normal Color, Warm Assessment and Plan - Assessment and Plan (Free Text) Assessment: 58 year old female with PMH of Ulcerative colitis on Entyvio (on Entyvio-last dose 08/14/2018), Diabetes, HTN, HLD, Obesity presenting with vomiting and diarrhea. Active treatment of DKA with CT A/P showing concern for pancolitis. Prior colonoscopy 08/2017. Plan: -recommend empiric antibiotic coverage including IV Flagyl for empiric Cdiff coverage given worsening leukocytosis and persistent vomiting and diarrhea until stool studies are obtained to rule out infectious diarrhea -ESR 5, CRP 16.30- potential elevation with baseline active UC -DKA management per ICU team -supportive care- anti-emetics, PPI ACB -clear liquid diet, advance as tolerated -will follow clinical course <Jonatan Leon - Last Filed: 10/01/18 11:44> Objective - Vital Signs/Intake and Output Vital Signs (last 24 hours): Temp Pulse Resp BP Pulse Ox 98.4 F 82 19 186/85 H 99 10/01/18 08:00 10/01/18 11:00 10/01/18 11:00 10/01/18 11:07 10/01/18 11:00 Intake and Output: 10/01/18 10/01/18 06:59 18:59 Intake Total 2000 750 Output Total 701 100 Balance 1299 650 - Medications Medications: Current Medications Dextrose (Dextrose 50% Inj) 0 ml IV STAT PRN; Protocol PRN Reason: Hypoglycemia Protocol Dextrose (Glutose 15) 0 gm PO ONCE PRN; Protocol PRN Reason: Hypoglycemia Protocol Glucagon (Glucagen Diagnostic Kit) 0 mg IM STAT PRN; Protocol PRN Reason: Hypoglycemia Protocol Heparin Sodium (Porcine) (Heparin) 5,000 units SC Q12H [facility] Last Admin: 10/01/18 04:27 Dose: 5,000 units Dextrose (Dextrose 5% In Water 1000 Ml) 1,000 mls @ 0 mls/hr IV .Q0M PRN; Protocol PRN Reason: Hypoglycemia Protocol Ciprofloxacin (Cipro 400mg/200ml Dsw) 400 mg in 200 mls @ 133 mls/hr IVPB Q12H [facility]; Protocol Metronidazole (Flagyl) 500 mg in 100 mls @ 100 mls/hr IVPB Q8H [facility]; Protocol Lactated Ringer's (Lactated Ringer's) 1,000 mls @ 60 mls/hr IV .[id number] [facility] Last Admin: 10/01/18 11:36 Dose: 60 mls/hr Insulin Aspart (Novolog) 0 unit SC [facility]; Protocol Last Admin: 10/01/18 11:38 Dose: 3 u Insulin Detemir (Levemir) 25 unit SC [facility] Last Admin: 09/30/18 21:53 Dose: 25 u Lisinopril (Zestril) 20 mg PO DAILY [facility] Last Admin: 10/01/18 10:42 Dose: 20 mg Ondansetron HCl (Zofran Inj) 4 mg IVP Q6H PRN PRN Reason: Nausea/Vomiting Last Admin: 10/01/18 08:52 Dose: 4 mg Rosuvastatin Calcium (Crestor) 20 mg PO [facility] Last Admin: 09/30/18 21:53 Dose: 20 mg - Labs Labs: 10/01/18 05:00 10/01/18 05:00 Attending/Attestation - Attestation I have personally seen and examined this patient.: Yes I have fully participated in the care of the patient.: Yes I have reviewed all pertinent clinical information, including history, physical exam and plan: Yes Notes (Text): 10/01/18 11:41 I have seen and examined patient with GI fellow. No acute events overnight, she remains in intensive care unit, had two episodes of watery diarrhea over past 24 hours and one episode of vomiting this morning. She denies abdominal pain, fever/chills. Review of vitals from today shows elevated BP. Ulcerative colitis - treatment refractory DM/HTN Hyperlipidemia Abdominal pain, diarrhea - DKA vs colitis - Liquid diet as tolerated - Awaiting results of stool and blood cultures - Given progressive increase in leukocytosis with ongoing nausea, vomiting would suggest beginning empiric antibiotic therapy - Continue with IVF hydration, supportive care, anti-emetic therapy - Diabetic management as per critical care team - Will continue to monitor patient clinical course
[2018-10-01] MEDS: (Novolog) Insulin Aspart, Recombinant 100 u/ml 10 ml vial SC SCH ×4 (08:30→21:34)
[2018-10-01] MEDS ORDERED: Lactated Ringer's 1,000 ML IV SCH (11:30)
[2018-10-01] MEDS: Sodium Chloride 0.9% 1,000 ML IV SCH (12:00)
[2018-10-01] MEDS: metroNIDAZOLE IV 500 mg/100 ml 500 MG/100 ML BAG IVPB SCH ×2 (12:55→20:34)
[2018-10-01] MEDS: Ciprofloxacin 400mg/200ml D5W 400 MG/200 ML BAG IVPB SCH (12:56)
--- NOTE | 2018-10-01 15:49 | CP.PCM.PN ---
Subjective - Date & Time of Evaluation Date of Evaluation: 10/01/18 Time of Evaluation: 15:40 - Subjective Subjective: Medical Attending Note: Patient seen and examined. Patient reports she feels nauseous but the episodes of nausea have improved. She reports she has only gone to the bathroom twice today. patient denies chest pain, denies cough, denies abdominal pain, + nausea, denies numbness, denies tingling. Objective - Vital Signs/Intake and Output Vital Signs (last 24 hours): Temp Pulse Resp BP Pulse Ox 97.2 F L 81 20 167/87 H 96 10/01/18 12:00 10/01/18 14:00 10/01/18 14:00 10/01/18 14:00 10/01/18 14:00 Intake and Output: 10/01/18 10/01/18 06:59 18:59 Intake Total 2000 1110 Output Total 701 100 Balance 1299 1010 - Medications Medications: Current Medications Dextrose (Dextrose 50% Inj) 0 ml IV STAT PRN; Protocol PRN Reason: Hypoglycemia Protocol Dextrose (Glutose 15) 0 gm PO ONCE PRN; Protocol PRN Reason: Hypoglycemia Protocol Glucagon (Glucagen Diagnostic Kit) 0 mg IM STAT PRN; Protocol PRN Reason: Hypoglycemia Protocol Heparin Sodium (Porcine) (Heparin) 5,000 units SC Q12H [facility] Last Admin: 10/01/18 04:27 Dose: 5,000 units Dextrose (Dextrose 5% In Water 1000 Ml) 1,000 mls @ 0 mls/hr IV .Q0M PRN; Protocol PRN Reason: Hypoglycemia Protocol Ciprofloxacin (Cipro 400mg/200ml Dsw) 400 mg in 200 mls @ 133 mls/hr IVPB Q12H [facility]; Protocol Last Admin: 10/01/18 12:56 Dose: 133 mls/hr Metronidazole (Flagyl) 500 mg in 100 mls @ 100 mls/hr IVPB Q8H [facility]; Protocol Last Admin: 10/01/18 12:55 Dose: 100 mls/hr Sodium Chloride (Sodium Chloride 0.9%) 1,000 mls @ 60 mls/hr IV .[id number] [facility] Last Admin: 10/01/18 12:00 Dose: 60 mls/hr Insulin Aspart (Novolog) 0 unit SC ACHS [facility]; Protocol Last Admin: 10/01/18 11:38 Dose: 3 u Insulin Detemir (Levemir) 25 unit SC [facility] Last Admin: 09/30/18 21:53 Dose: 25 u Lisinopril (Zestril) 20 mg PO DAILY [facility] Last Admin: 10/01/18 10:42 Dose: 20 mg Metoclopramide HCl (Reglan) 10 mg IVP Q6H PRN PRN Reason: Nausea/Vomiting Ondansetron HCl (Zofran Inj) 4 mg IVP Q6H PRN PRN Reason: Nausea/Vomiting Last Admin: 10/01/18 15:06 Dose: 4 mg Rosuvastatin Calcium (Crestor) 20 mg PO HS [facility] Last Admin: 09/30/18 21:53 Dose: 20 mg - Labs Labs: 10/01/18 05:00 10/01/18 05:00 - Constitutional Appears: Non-toxic, No Acute Distress - Head Exam Head Exam: NORMAL INSPECTION - Eye Exam Eye Exam: EOMI - ENT Exam ENT Exam: Mucous Membranes Moist - Respiratory Exam Respiratory Exam: Clear to Ausculation Bilateral, NORMAL BREATHING PATTERN. absent: Rales, Rhonchi, Wheezes - Cardiovascular Exam Cardiovascular Exam: REGULAR RHYTHM, +S1, +S2 - GI/Abdominal Exam GI & Abdominal Exam: Distended (obese habitus), Soft, Normal Bowel Sounds. absent: Firm, Guarding, Rigid, Tenderness, Rebound - Extremities Exam Extremities Exam: absent: Pedal Edema, Tenderness - Neurological Exam Neurological Exam: Alert, Awake, Oriented x3 - Psychiatric Exam Psychiatric exam: Normal Affect, Normal Mood - Skin Skin Exam: Dry, Intact, Normal Color, Warm Assessment and Plan (1) DKA, type 2 Status: Acute (2) Nausea Status: Acute (3) Leukocytosis Status: Acute (4) Ulcerative colitis Status: Acute (5) Hypertension Status: Acute (6) Lipid disorder Status: Acute (7) Diabetes Status: Chronic (8) Prophylactic measure Status: Acute Attending/Attestation - Attestation I have personally seen and examined this patient.: Yes I have fully participated in the care of the patient.: Yes I have reviewed all pertinent clinical information, including history, physical exam and plan: Yes Notes (Text): Assessment/Plan 1. Diabetic Ketoacidosis Type 2 Diabetes Assessment/Plan * Anion gap has closed. Downgraded from the ICU 10/01/18 * Accuchecks QAC and HS * hgba1c and lipid panel in AM * Novolog sliding scale qACHS * Hypoglycemic protocol * Levemir 25 unitsubqHS 2. Intractable Nausea and Vomiting Assessment/Plan * CT abdomen/Pelvis with IV contrast (09/30/18): no ct evidence of pancreatitis. Suspicious for diffuse large bowel wall thickening which may represent pancolitis. No CT evidence of cholecystitis pancreatitis or high grade small bowel obstruction * elevated Lipase on admission * Zofran 4mg IV Q6H PRN nausea/vomitting * Reglan 10mg IV Q6H PRN nausea/vomitting (2nd line) 3. Leukocytosis Assessment/Plan * Procalcitonin pending * Blood culture (09/30/18): pending * MRSA Screen (09/30/18): pending * Urine culture (09/30/18): pending * Chest xray (09/30/18): no focal consolidation * ESR: 5 CRP: elevated 4. History of Ulcerative Colitis Diarrhea Assessment/Plan * CT abdomen/Pelvis with IV contrast (09/30/18): no ct evidence of pancreatitis. Suspicious for diffuse large bowel wall thickening which may represent pancolitis. No CT evidence of cholecystitis pancreatitis or high grade small bowel obstruction * Ciprofloxacin 400mg IV Q12H (active since 10/01/18) * Flagyl 500mg IVPB Q8H (active since 10/01/18) * C. diff toxin (09/30/18): pending * Fecal leukocytes (09/30/18): pending * Stool culture (09/30/18): pending * Stool ova and parasite (09/30/18): pending 5. Hypertension Assessment/Plan * Lisinopril 20mg PO daily * Start Norvasc 5mg PO daily * Monitor bp 6. Lipid Disorder Assessment/Plan * Crestor 20mg POqHS * Lipid panel in AM 7. Abnormal EKG Assessment/Plan * EKG (10/01/18): normal sinus rhythm * Echocardiogram pending * cardiac risk factors: diabetes, hypertension, lipid disorder 8. Prophylactic measure Assessment/Plan * Florastor 250mg PO BID * Heparin 5000 unit [id number] * Protonix 40mg IV q daily * PT/OT eval * Hypoglycemic protocol * NS 60cc/hr Disposition: patient stabilized from the ICU to the floor. patient started on IV abx. pending cultures. monitor nausea. reconsult PT/OT
[2018-10-01] MEDS: Aluminum Hydroxide/Magnesium Hydroxide Susp (30 mL) PO PRN (16:48)
--- NOTE | 2018-10-01 17:12 | CARD ---
APPROVED REPORT Date of service: 10/01/2018 EXAM: Two-dimensional and M-mode echocardiogram with Doppler and color Doppler. Other Information Quality : GoodRhythm : INDICATION Abnormal EKG/Arrhythmia Possible Left atrial enlargement RISK FACTORS Hypertension Hyperlipidemia Diabetes 2D DIMENSIONS IVSd1.2 (0.7-1.1cm)LVDd5.3 (3.9-5.9cm) PWd1.1 (0.7-1.1cm)LA [id number] (18-58mL) LVDs3.5 (2.5-4.0cm)FS (%) 34.2 % LVEF (%)62.8 (>50%)LVEF (Hdez's)62.15 % M-Mode DIMENSIONS Left Atrium (MM)4.00 (2.5-4.0cm)IVSd0.95 (0.7-1.1cm) Aortic Root3.47 (2.2-3.7cm)LVDd5.71 (4.0-5.6cm) Aortic Cusp Exc.2.06 (1.5-2.0cm)PWd0.83 (0.7-1.1cm) FS (%) 36 %LVDs3.65 (2.0-3.8cm) LVEF (%)65 (>50%) Mitral Valve MV E Mkgjtlax90.3cm/sMV A Jnkidlvr302.2cm/sE/A ratio0.6 TDI Lateral E' Peak V3.48cm/sMedial E' Peak V3.00cm/sE/Lateral E'20.8 E/Medial E'24.1 LEFT VENTRICLE The left ventricle is normal size. There is normal left ventricular wall thickness. The left ventricular systolic function is normal. The left ventricular ejection fraction is within the normal range. There is normal LV segmental wall motion. Transmitral Doppler flow pattern is Grade I-abnormal relaxation pattern. Elevated left atrial pressure by Tissue Doppler RIGHT VENTRICLE The right ventricle is normal size. The right ventricular systolic function is normal. ATRIA The left atrium is mildly dilated. The right atrium size is normal. AORTIC VALVE The aortic valve is normal in structure. No aortic regurgitation is present. There is no aortic valvular stenosis. MITRAL VALVE The mitral valve is normal in structure. There is no mitral valve regurgitation noted. TRICUSPID VALVE The tricuspid valve is normal in structure. There is no tricuspid valve regurgitation noted. PULMONIC VALVE The pulmonary valve is normal in structure. There is trace pulmonic valvular regurgitation. GREAT VESSELS The aortic root is normal in size. The IVC is normal in size and collapses >50% with inspiration. PERICARDIAL EFFUSION There is no pericardial effusion. <Conclusion> The left ventricular systolic function is normal. There is normal LV segmental wall motion. Grade I diastolic dysfunction-abnormal relaxation pattern. Elevated left atrial pressure by Tissue Doppler The right ventricular systolic function is normal. The left atrium is borderline dilated. No significant valvular abnormality. There is no pericardial effusion.
[2018-10-01 17:19] VITALS: RESP 20
[2018-10-01] MEDS: Saccharomyces Boulardi 250 mg Cap PO SCH (17:55)
[2018-10-01] MEDS: Insulin Detemir 100 units/ml Vial (Levemir) SC SCH (21:33)
[2018-10-02] MEDS: Ciprofloxacin 400mg/200ml D5W 400 MG/200 ML BAG IVPB SCH ×2 (00:02→12:05)
[2018-10-02] MEDS: metroNIDAZOLE IV 500 mg/100 ml 500 MG/100 ML BAG IVPB SCH ×3 (04:01→20:30)
[2018-10-02] MEDS: Sodium Chloride 0.9% 1,000 ML IV SCH ×2 (04:25→21:29)
[2018-10-02 06:51] LABS: BASO # 0.1 K/uL (0.0-0.2); BASO % 0.8 % (0.0-2.0); EOS # 0.1 K/uL (0.0-0.7); EOS % 0.4 % (0.0-4.0); HEMOGLOBIN 16.3 g/dL (11.0-16.0); LYMPH # 2.2 K/uL (1.0-4.3); LYMPH % 17.3 % (20.0-40.0); MEAN CORPUSCULAR HEMOGLOBIN 31.2 pg (27.0-31.0); MEAN CORPUSCULAR HGB CONC 34.7 g/dL (33.0-37.0); MEAN PLATELET VOLUME 9.4 fL (7.2-11.7); MONO # 1.2 K/uL (0.0-0.8); MONO % 9.5 % (0.0-10.0); RBC 5.22 Mil/uL (3.80-5.20); RED CELL DISTRIBUTION WIDTH 13.1 % (11.5-14.5); WHITE BLOOD COUNT 12.5 K/uL (4.8-10.8)
[2018-10-02 07:14] LABS: HDL CHOLESTEROL 30 mg/dL (30-70)
[2018-10-02 07:16] LABS: ALB/GLOB RATIO 1.4 (1.0-2.1); ALBUMIN 4.3 g/dL (3.5-5.0); ALT/SGPT 30 U/L (9-52); AST/SGOT 37 U/L (14-36); BLOOD UREA NITROGEN 10 mg/dL (7-17); GFR NON-AFRICAN AMERICAN > 60
[2018-10-02 07:25] LABS: LDL CHOLESTEROL 96 mg/dL (0-129)
--- NOTE | 2018-10-02 07:37 | CP.PCM.PN ---
<Sameer Sun - Last Filed: 10/02/18 14:40> Subjective - Date & Time of Evaluation Date of Evaluation: 10/02/18 Time of Evaluation: 10:30 - Subjective Subjective: Medicine progress note for Dr. Varner Pt seen and examined at bedside. Denies vomiting, but endorses spitting up some bilious/yellow liquid materials. Pt is tolerating little bits of food at a time. Denies fever, chills, abdominal pain, diarrhea, hematochezia, melena, vomiting, chest pain, sob, headache, numbness and tingling. Objective - Vital Signs/Intake and Output Vital Signs (last 24 hours): Temp Pulse Resp BP Pulse Ox 97.8 F 74 20 177/88 H 97 10/02/18 00:00 10/02/18 00:00 10/02/18 00:00 10/02/18 00:00 10/02/18 00:00 Intake and Output: 10/02/18 10/02/18 06:59 18:59 Intake Total 1260 Balance 1260 - Medications Medications: Current Medications Al Hydrox/Mg Hydrox/Simethicone (Maalox 30 Ml) 30 ml PO Q6H PRN PRN Reason: Indigestion / Heartburn Last Admin: 10/01/18 16:48 Dose: 30 ml Amlodipine Besylate (Norvasc) 5 mg PO DAILY [facility] Dextrose (Dextrose 50% Inj) 0 ml IV STAT PRN; Protocol PRN Reason: Hypoglycemia Protocol Dextrose (Glutose 15) 0 gm PO ONCE PRN; Protocol PRN Reason: Hypoglycemia Protocol Glucagon (Glucagen Diagnostic Kit) 0 mg IM STAT PRN; Protocol PRN Reason: Hypoglycemia Protocol Heparin Sodium (Porcine) (Heparin) 5,000 units SC Q12H [facility] Last Admin: 10/02/18 04:18 Dose: 5,000 units Dextrose (Dextrose 5% In Water 1000 Ml) 1,000 mls @ 0 mls/hr IV .Q0M PRN; Protocol PRN Reason: Hypoglycemia Protocol Ciprofloxacin (Cipro 400mg/200ml Dsw) 400 mg in 200 mls @ 133 mls/hr IVPB Q12H [facility]; Protocol Last Admin: 10/02/18 00:02 Dose: 133 mls/hr Metronidazole (Flagyl) 500 mg in 100 mls @ 100 mls/hr IVPB Q8H [facility]; Protocol Last Admin: 10/02/18 04:01 Dose: 100 mls/hr Sodium Chloride (Sodium Chloride 0.9%) 1,000 mls @ 60 mls/hr IV .[id number] [facility] Last Admin: 10/02/18 04:25 Dose: Not Given Insulin Aspart (Novolog) 0 unit SC [facility]; Protocol Last Admin: 10/01/18 21:34 Dose: Not Given Insulin Detemir (Levemir) 25 unit SC [facility] Last Admin: 10/01/18 21:33 Dose: 25 u Lisinopril (Zestril) 20 mg PO DAILY [facility] Last Admin: 10/01/18 10:42 Dose: 20 mg Metoclopramide HCl (Reglan) 10 mg IVP Q6H PRN PRN Reason: Nausea/Vomiting Last Admin: 10/01/18 16:11 Dose: 10 mg Ondansetron HCl (Zofran Inj) 4 mg IVP Q6H PRN PRN Reason: Nausea/Vomiting Last Admin: 10/02/18 04:28 Dose: 4 mg Pantoprazole Sodium (Protonix Inj) 40 mg IVP DAILY [facility] Last Admin: 10/01/18 16:49 Dose: 40 mg Rosuvastatin Calcium (Crestor) 20 mg PO [facility] Last Admin: 10/01/18 21:34 Dose: 20 mg Saccharomyces Boulardii (Florastor) 250 mg PO BID [facility] Last Admin: 10/01/18 17:55 Dose: 250 mg - Labs Labs: 10/02/18 06:41 10/02/18 06:41 - Constitutional Appears: Non-toxic, No Acute Distress - Head Exam Head Exam: ATRAUMATIC, NORMAL INSPECTION - Eye Exam Eye Exam: EOMI - ENT Exam ENT Exam: Mucous Membranes Moist - Respiratory Exam Respiratory Exam: Clear to Ausculation Bilateral, NORMAL BREATHING PATTERN. absent: Rhonchi, Wheezes, Respiratory Distress - Cardiovascular Exam Cardiovascular Exam: REGULAR RHYTHM, +S1, +S2 - GI/Abdominal Exam GI & Abdominal Exam: Soft, Normal Bowel Sounds. absent: Distended, Firm, Guarding - Extremities Exam Extremities Exam: Normal Capillary Refill, Normal Inspection. absent: Calf Tenderness, Pedal Edema - Back Exam Back Exam: NORMAL INSPECTION - Neurological Exam Neurological Exam: Alert, Awake - Psychiatric Exam Psychiatric exam: Normal Affect, Normal Mood - Skin Skin Exam: Dry, Normal Color, Warm Assessment and Plan - Assessment and Plan (Free Text) Assessment: Diabetic Ketoacidosis, resolved Type 2 Diabetes Assessment/Plan * Anion gap has closed. Downgraded from the ICU 10/01/18 * Accuchecks QAC and HS * hgba1c is 9.4 * Novolog sliding scale qACHS * Hypoglycemic protocol * Levemir 25 unit SC HS Intractable Nausea and Vomiting Assessment/Plan * CT abdomen/Pelvis with IV contrast (09/30/18): no ct evidence of pancreatitis. Suspicious for diffuse large bowel wall thickening which may represent pancolitis. No CT evidence of cholecystitis pancreatitis or high grade small bowel obstruction * elevated Lipase on admission (359) * Zofran 4mg IV Q6H PRN nausea/vomitting * Reglan 10mg IV Q6H PRN nausea/vomitting (2nd line) * UCx negative Leukocytosis Assessment/Plan * Procalcitonin pending * Blood culture (09/30/18): pending * MRSA Screen (09/30/18): pending * Urine culture (09/30/18): pending * Chest xray (09/30/18): no focal consolidation * ESR: 5 CRP: elevated History of Ulcerative Colitis Diarrhea, resolved Assessment/Plan * GI, Dr. Leon, consulted. * Abx started due to symptoms and elevated WBC. May consider endoscopic evaluation Friday if vomiting persists. Fecal calprotectin * CT abdomen/Pelvis with IV contrast (09/30/18): no ct evidence of pancreatitis. Suspicious for diffuse large bowel wall thickening which may represent pancolitis. No CT evidence of cholecystitis pancreatitis or high grade small bowel obstruction * Ciprofloxacin 400mg IV Q12H (active since 10/01/18) * Flagyl 500mg IVPB Q8H (active since 10/01/18) * C. diff toxin (09/30/18): pending * Fecal leukocytes (09/30/18): pending * Stool culture (09/30/18): pending * Stool ova and parasite (09/30/18): pending * F/u fecal calproctectin Hypertension Assessment/Plan * Lisinopril 20mg PO daily * Start Norvasc 10 mg PO daily * Continue to monitor BP Lipid Disorder Assessment/Plan * Crestor 20mg POqHS * Lipid panel shows TG/CHL/LDL/HDL is 218/141/96/30 Abnormal EKG Assessment/Plan * EKG (10/01/18): normal sinus rhythm * Echocardiogram read pending * cardiac risk factors: diabetes, hypertension, lipid disorder Prophylactic measure Assessment/Plan * Florastor 250mg PO BID * Heparin 5000 unit [id number] * Protonix 40mg IV q daily * PT/OT eval * Hypoglycemic protocol * NS 60cc/hr <Dorcas Varner V - Last Filed: 10/02/18 17:42> Objective - Vital Signs/Intake and Output Vital Signs (last 24 hours): Temp Pulse Resp BP Pulse Ox 98.1 F 87 20 185/95 H 97 10/02/18 16:00 10/02/18 16:00 10/02/18 16:00 10/02/18 16:00 10/02/18 16:00 Intake and Output: 10/02/18 10/02/18 06:59 18:59 Intake Total 1260 700 Balance 1260 700 - Medications Medications: Current Medications Al Hydrox/Mg Hydrox/Simethicone (Maalox 30 Ml) 30 ml PO Q6H PRN PRN Reason: Indigestion / Heartburn Last Admin: 10/01/18 16:48 Dose: 30 ml Amlodipine Besylate (Norvasc) 10 mg PO DAILY [facility] Dextrose (Dextrose 50% Inj) 0 ml IV STAT PRN; Protocol PRN Reason: Hypoglycemia Protocol Dextrose (Glutose 15) 0 gm PO ONCE PRN; Protocol PRN Reason: Hypoglycemia Protocol Glucagon (Glucagen Diagnostic Kit) 0 mg IM STAT PRN; Protocol PRN Reason: Hypoglycemia Protocol Heparin Sodium (Porcine) (Heparin) 5,000 units SC Q12H [facility] Last Admin: 10/02/18 17:11 Dose: 5,000 units Hydralazine HCl (Apresoline) 25 mg PO QID [facility] Dextrose (Dextrose 5% In Water 1000 Ml) 1,000 mls @ 0 mls/hr IV .Q0M PRN; Protocol PRN Reason: Hypoglycemia Protocol Ciprofloxacin (Cipro 400mg/200ml Dsw) 400 mg in 200 mls @ 133 mls/hr IVPB Q12H [facility]; Protocol Last Admin: 10/02/18 12:05 Dose: 133 mls/hr Metronidazole (Flagyl) 500 mg in 100 mls @ 100 mls/hr IVPB Q8H [facility]; Protocol Last Admin: 10/02/18 11:07 Dose: 100 mls/hr Sodium Chloride (Sodium Chloride 0.9%) 1,000 mls @ 60 mls/hr IV .[id number] [facility] Last Admin: 10/02/18 04:25 Dose: Not Given Insulin Aspart (Novolog) 0 unit SC [facility]; Protocol Last Admin: 10/02/18 17:10 Dose: 3 u Insulin Detemir (Levemir) 25 unit SC [facility] Last Admin: 10/01/18 21:33 Dose: 25 u Lisinopril (Zestril) 20 mg PO DAILY [facility] Last Admin: 10/02/18 09:26 Dose: 20 mg Metoclopramide HCl (Reglan) 10 mg IVP Q6H PRN PRN Reason: Nausea/Vomiting Last Admin: 10/01/18 16:11 Dose: 10 mg Ondansetron HCl (Zofran Inj) 4 mg IVP Q6H PRN PRN Reason: Nausea/Vomiting Last Admin: 10/02/18 14:18 Dose: 4 mg Pantoprazole Sodium (Protonix Inj) 40 mg IVP DAILY [facility] Last Admin: 10/02/18 09:26 Dose: 40 mg Rosuvastatin Calcium (Crestor) 20 mg PO [facility] Last Admin: 10/01/18 21:34 Dose: 20 mg Saccharomyces Boulardii (Florastor) 250 mg PO BID [facility] Last Admin: 10/02/18 09:26 Dose: 250 mg - Labs Labs: 10/02/18 06:41 10/02/18 06:41 Assessment and Plan (1) DKA, type 2 Status: Acute (2) Nausea Status: Acute (3) Leukocytosis Status: Acute (4) Ulcerative colitis Status: Acute (5) Hypertension Status: Acute (6) Lipid disorder Status: Acute (7) Diabetes Status: Chronic (8) Prophylactic measure Status: Acute Attending/Attestation - Attestation I have personally seen and examined this patient.: Yes I have fully participated in the care of the patient.: Yes I have reviewed all pertinent clinical information, including history, physical exam and plan: Yes Notes (Text): patient seen, examined and case discussed with day-time resident. patient seen this morning. Patient reports she continues to spit up and eat only small bites of food. She has not had a bowel movement yet as of this morning when I spoke with the nurse. Patient to contine IV abx to cover for colitis. patient's blood pressure uncontrolled though i suspect its from her persistent nausea. increase to norvasc 10mg PO daily and added hydralazine 10mg PO qID this afternoon. GI considering for EGD given persistent nausea. Patient is clinically better hydrated. Nursing is aware to collect for stool samples for diarrhea. Calopectin ordered. Sugars are better controlled. 1. Diabetic Ketoacidosis Type 2 Diabetes Assessment/Plan * Anion gap has closed. Downgraded from the ICU 10/01/18 * Accuchecks QAC and HS * hgba1c: 9.4 * patient is off metformin * Novolog sliding scale qACHS * Hypoglycemic protocol * Levemir 25 unitsubqHS 2. Intractable Nausea and Vomiting Assessment/Plan * CT abdomen/Pelvis with IV contrast (09/30/18): no ct evidence of pancreatitis. Suspicious for diffuse large bowel wall thickening which may represent pancolitis. No CT evidence of cholecystitis pancreatitis or high grade small bowel obstruction * elevated Lipase on admission * Zofran 4mg IV Q6H PRN nausea/vomitting * Reglan 10mg IV Q6H PRN nausea/vomitting (2nd line) 3. Leukocytosis Assessment/Plan * Procalcitonin: low * Blood culture (09/30/18): negative * MRSA Screen (09/30/18): pending * Urine culture (09/30/18): no growth * Chest xray (09/30/18): no focal consolidation * ESR: 5 CRP: elevated 4. History of Ulcerative Colitis Diarrhea Assessment/Plan * CT abdomen/Pelvis with IV contrast (09/30/18): no ct evidence of pancreatitis. Suspicious for diffuse large bowel wall thickening which may represent pancolitis. No CT evidence of cholecystitis pancreatitis or high grade small bowel obstruction * Ciprofloxacin 400mg IV Q12H (active since 10/01/18) * Flagyl 500mg IVPB Q8H (active since 10/01/18) * C. diff toxin (09/30/18): pending * Fecal leukocytes (09/30/18): pending * Stool culture (09/30/18): pending * Stool ova and parasite (09/30/18): pending 5. Hypertension, uncontrolled Assessment/Plan * Lisinopril 20mg PO daily * Norvasc 10mg PO daily * add hydralazine 10mg POQID * Monitor bp 6. Lipid Disorder Assessment/Plan * Crestor 20mg POqHS * Lipid panel in AM 7. Abnormal EKG Assessment/Plan * EKG (10/01/18): normal sinus rhythm * Echocardiogram (10/01/18): left ventricular systolic function. normal LV segmental wall motion. grade I diastolic dysfunction abnormal relaxation pattern. elevated left atrial pressure by tissue doppler. right ventricular systolic function is normal. left atrium is borderline dilated. no significant * cardiac risk factors: diabetes, hypertension, lipid disorder 8. Prophylactic measure Assessment/Plan * Florastor 250mg PO BID * Heparin 5000 unit [id number] * Protonix 40mg IV q daily * PT/OT eval * Hypoglycemic protocol * NS 60cc/hr Disposition: pending EGD possible. monitor nausea.
--- NOTE | 2018-10-02 08:22 | CP.PCM.PN ---
<Marian Lombardi - Last Filed: 10/02/18 10:56> Subjective - Date & Time of Evaluation Date of Evaluation: 10/02/18 Time of Evaluation: 08:19 - Subjective Subjective: Gastroenterology Fellow/PGY6 Progress Note Patient continued to have bilious vomiting yesterday with slight decrease in frequency. Tolerated small amounts of liquids. Notes only one small diarrhea episode yesterday morning. Denies abdominal pain. A 12-point review of systems negative except for as above. Objective - Vital Signs/Intake and Output Vital Signs (last 24 hours): Temp Pulse Resp BP Pulse Ox 97.9 F 84 20 197/92 H 98 10/02/18 08:02 10/02/18 08:02 10/02/18 08:02 10/02/18 08:02 10/02/18 08:02 Intake and Output: 10/02/18 10/02/18 06:59 18:59 Intake Total 1260 Balance 1260 - Medications Medications: Current Medications Al Hydrox/Mg Hydrox/Simethicone (Maalox 30 Ml) 30 ml PO Q6H PRN PRN Reason: Indigestion / Heartburn Last Admin: 10/01/18 16:48 Dose: 30 ml Amlodipine Besylate (Norvasc) 5 mg PO DAILY [facility] Dextrose (Dextrose 50% Inj) 0 ml IV STAT PRN; Protocol PRN Reason: Hypoglycemia Protocol Dextrose (Glutose 15) 0 gm PO ONCE PRN; Protocol PRN Reason: Hypoglycemia Protocol Glucagon (Glucagen Diagnostic Kit) 0 mg IM STAT PRN; Protocol PRN Reason: Hypoglycemia Protocol Heparin Sodium (Porcine) (Heparin) 5,000 units SC Q12H [facility] Last Admin: 10/02/18 04:18 Dose: 5,000 units Dextrose (Dextrose 5% In Water 1000 Ml) 1,000 mls @ 0 mls/hr IV .Q0M PRN; Prot ocol PRN Reason: Hypoglycemia Protocol Ciprofloxacin (Cipro 400mg/200ml Dsw) 400 mg in 200 mls @ 133 mls/hr IVPB Q12H [facility]; Protocol Last Admin: 10/02/18 00:02 Dose: 133 mls/hr Metronidazole (Flagyl) 500 mg in 100 mls @ 100 mls/hr IVPB Q8H [facility]; Protocol Last Admin: 10/02/18 04:01 Dose: 100 mls/hr Sodium Chloride (Sodium Chloride 0.9%) 1,000 mls @ 60 mls/hr IV .[id number] [facility] Last Admin: 10/02/18 04:25 Dose: Not Given Insulin Aspart (Novolog) 0 unit SC [facility]; Protocol Last Admin: 10/01/18 21:34 Dose: Not Given Insulin Detemir (Levemir) 25 unit SC [facility] Last Admin: 10/01/18 21:33 Dose: 25 u Lisinopril (Zestril) 20 mg PO DAILY [facility] Last Admin: 10/01/18 10:42 Dose: 20 mg Metoclopramide HCl (Reglan) 10 mg IVP Q6H PRN PRN Reason: Nausea/Vomiting Last Admin: 10/01/18 16:11 Dose: 10 mg Ondansetron HCl (Zofran Inj) 4 mg IVP Q6H PRN PRN Reason: Nausea/Vomiting Last Admin: 10/02/18 04:28 Dose: 4 mg Pantoprazole Sodium (Protonix Inj) 40 mg IVP DAILY [facility] Last Admin: 10/01/18 16:49 Dose: 40 mg Rosuvastatin Calcium (Crestor) 20 mg PO [facility] Last Admin: 10/01/18 21:34 Dose: 20 mg Saccharomyces Boulardii (Florastor) 250 mg PO BID [facility] Last Admin: 10/01/18 17:55 Dose: 250 mg - Labs Labs: 10/02/18 06:41 10/02/18 06:41 - Constitutional Appears: Non-toxic, No Acute Distress - Head Exam Head Exam: ATRAUMATIC, NORMOCEPHALIC - Eye Exam Eye Exam: EOMI, PERRL. absent: Scleral icterus Pupil Exam: PERRL. absent: Miosis, Mydriatic - ENT Exam ENT Exam: Mucous Membranes Moist, Normal Oropharynx - Neck Exam Neck Exam: Full ROM, Normal Inspection - Respiratory Exam Respiratory Exam: Clear to Ausculation Bilateral. absent: Rales, Rhonchi, Wheezes - Cardiovascular Exam Cardiovascular Exam: RRR, +S1, +S2. absent: Gallop, Rubs - GI/Abdominal Exam GI & Abdominal Exam: Soft, Normal Bowel Sounds. absent: Distended, Firm, Gua rding, Rigid, Tenderness, Organomegaly, Rebound - Extremities Exam Extremities Exam: Normal Inspection. absent: Pedal Edema - Neurological Exam Neurological Exam: Alert, Awake - Psychiatric Exam Psychiatric exam: Normal Affect, Normal Mood - Skin Skin Exam: Dry, Intact, Normal Color, Warm Assessment and Plan - Assessment and Plan (Free Text) Assessment: 58 year old female with PMH of severe refractory Ulcerative colitis on Entyvio (on Entyvio-last dose 08/14/2018, failed multiple medications), Diabetes, HTN, HLD, Obesity presenting with vomiting and diarrhea. Active treatment of DKA with CT A/P showing pancolitis. Prior colonoscopy 08/2017. Plan: -diarrhea and vomiting slowly improving and likely related to improving DKA -low suspicion for UC flare -leukocytosis improving -on Cipro/Flagyl -send stool studies if patient has a bowel movement -supportive care- anti-emetics, PPI ACB -primary team managing DKA -clear liquid diet, advance as tolerated -may consider endoscopic evaluation Friday if vomiting persists -will follow clinical course <Jonatan Leon - Last Filed: 10/02/18 11:48> Objective - Vital Signs/Intake and Output Vital Signs (last 24 hours): Temp Pulse Resp BP Pulse Ox 97.9 F 84 20 197/92 H 98 10/02/18 08:02 10/02/18 08:02 10/02/18 08:02 10/02/18 08:02 10/02/18 08:02 Intake and Output: 10/02/18 10/02/18 06:59 18:59 Intake Total 1260 Balance 1260 - Medications Medications: Current Medications Al Hydrox/Mg Hydrox/Simethicone (Maalox 30 Ml) 30 ml PO Q6H PRN PRN Reason: Indigestion / Heartburn Last Admin: 10/01/18 16:48 Dose: 30 ml Amlodipine Besylate (Norvasc) 10 mg PO DAILY [facility] Dextrose (Dextrose 50% Inj) 0 ml IV STAT PRN; Protocol PRN Reason: Hypoglycemia Protocol Dextrose (Glutose 15) 0 gm PO ONCE PRN; Protocol PRN Reason: Hypoglycemia Protocol Glucagon (Glucagen Diagnostic Kit) 0 mg IM STAT PRN; Protocol PRN Reason: Hypoglycemia Protocol Heparin Sodium (Porcine) (Heparin) 5,000 units SC Q12H [facility] Last Admin: 10/02/18 04:18 Dose: 5,000 units Dextrose (Dextrose 5% In Water 1000 Ml) 1,000 mls @ 0 mls/hr IV .Q0M PRN; Protocol PRN Reason: Hypoglycemia Protocol Ciprofloxacin (Cipro 400mg/200ml Dsw) 400 mg in 200 mls @ 133 mls/hr IVPB Q12H [facility]; Protocol Last Admin: 10/02/18 00:02 Dose: 133 mls/hr Metronidazole (Flagyl) 500 mg in 100 mls @ 100 mls/hr IVPB Q8H [facility]; Protocol Last Admin: 10/02/18 11:07 Dose: 100 mls/hr Sodium Chloride (Sodium Chloride 0.9%) 1,000 mls @ 60 mls/hr IV .[id number] [facility] Last Admin: 10/02/18 04:25 Dose: Not Given Insulin Aspart (Novolog) 0 unit SC [facility]; Protocol Last Admin: 10/02/18 08:39 Dose: 2 u Insulin Detemir (Levemir) 25 unit SC [facility] Last Admin: 10/01/18 21:33 Dose: 25 u Lisinopril (Zestril) 20 mg PO DAILY [facility] Last Admin: 10/02/18 09:26 Dose: 20 mg Metoclopramide HCl (Reglan) 10 mg IVP Q6H PRN PRN Reason: Nausea/Vomiting Last Admin: 10/01/18 16:11 Dose: 10 mg Ondansetron HCl (Zofran Inj) 4 mg IVP Q6H PRN PRN Reason: Nausea/Vomiting Last Admin: 10/02/18 04:28 Dose: 4 mg Pantoprazole Sodium (Protonix Inj) 40 mg IVP DAILY [facility] Last Admin: 10/02/18 09:26 Dose: 40 mg Rosuvastatin Calcium (Crestor) 20 mg PO [facility] Last Admin: 10/01/18 21:34 Dose: 20 mg Saccharomyces Boulardii (Florastor) 250 mg PO BID [facility] Last Admin: 10/02/18 09:26 Dose: 250 mg - Labs Labs: 10/02/18 06:41 10/02/18 06:41 Attending/Attestation - Attestation I have personally seen and examined this patient.: Yes I have fully participated in the care of the patient.: Yes I have reviewed all pertinent clinical information, including history, physical exam and plan: Yes Notes (Text): 10/02/18 11:45 I have seen and examined patient with GI fellow. No acute events overnight, she continues to report ongoing nausea and bilious emesis though slightly improved compared to yesterday. She denies abdominal pain, no bowel movements since yesterday morning. Review of vitals from today shows elevated BP. DM - uncontrolled, DKA Treatment refractory UC HTN Hyperlipidemia - Diet as tolerated - Continue with antibiotic therapy - Awaiting results of stool and blood culture studies - Low clinical suspicion for IBD disease exacerbation, though obtain fecal calprotectin - Continue with supportive care, anti-emetic therapy PRN - If persistent nausea, vomiting noted will consider EGD evaluation on friday. Will continue to monitor patient clinical course.
[2018-10-02] MEDS: (Novolog) Insulin Aspart, Recombinant 100 u/ml 10 ml vial SC SCH ×4 (08:39→21:27)
[2018-10-02] MEDS: Saccharomyces Boulardi 250 mg Cap PO SCH ×2 (09:26→18:00)
[2018-10-02] MEDS: Insulin Detemir 100 units/ml Vial (Levemir) SC SCH (21:31)
[2018-10-03] MEDS: Ciprofloxacin 400mg/200ml D5W 400 MG/200 ML BAG IVPB SCH (00:11)
[2018-10-03] MEDS: Aluminum Hydroxide/Magnesium Hydroxide Susp (30 mL) PO PRN (03:02)
[2018-10-03] MEDS: metroNIDAZOLE IV 500 mg/100 ml 500 MG/100 ML BAG IVPB SCH (03:03)
[2018-10-03] MEDS: (Novolog) Insulin Aspart, Recombinant 100 u/ml 10 ml vial SC SCH ×4 (07:46→21:31)
[2018-10-03 07:49] LABS: BASO % 0.3 % (0.0-2.0); EOS # 0.1 K/uL (0.0-0.7); EOS % 0.7 % (0.0-4.0); HEMOGLOBIN 16.5 g/dL (11.0-16.0); LYMPH # 1.8 K/uL (1.0-4.3); MEAN CELL VOLUME 89.7 fL (81.0-99.0); MEAN CORPUSCULAR HEMOGLOBIN 31.7 pg (27.0-31.0); MEAN CORPUSCULAR HGB CONC 35.4 g/dL (33.0-37.0); MEAN PLATELET VOLUME 8.5 fL (7.2-11.7); MONO # 1.2 K/uL (0.0-0.8); NRBC % 0.1 % (0.0-2.0); RBC 5.2 Mil/uL (3.80-5.20); RED CELL DISTRIBUTION WIDTH 12.8 % (11.5-14.5); WHITE BLOOD COUNT 9.1 K/uL (4.8-10.8)
[2018-10-03 08:05] LABS: ALB/GLOB RATIO 1.6 (1.0-2.1); ALBUMIN 4.1 g/dL (3.5-5.0); ALT/SGPT 23 U/L (9-52); AST/SGOT 30 U/L (14-36); BLOOD UREA NITROGEN 12 mg/dL (7-17); CALCIUM 9.1 mg/dl (8.6-10.4); GFR NON-AFRICAN AMERICAN > 60
[2018-10-03] MEDS: Saccharomyces Boulardi 250 mg Cap PO SCH ×2 (09:22→18:00)
--- NOTE | 2018-10-03 11:40 | CP.PCM.PN ---
<Dorcas Varner V - Last Filed: 10/03/18 15:56> Objective - Vital Signs/Intake and Output Vital Signs (last 24 hours): Temp Pulse Resp BP Pulse Ox 98.5 F 90 20 180/82 H 96 10/03/18 07:47 10/03/18 07:47 10/03/18 07:47 10/03/18 00:00 10/03/18 07:47 Intake and Output: 10/03/18 10/03/18 06:59 18:59 Intake Total 870 880 Balance 870 880 - Medications Medications: Current Medications Al Hydrox/Mg Hydrox/Simethicone (Maalox 30 Ml) 30 ml PO Q6H PRN PRN Reason: Indigestion / Heartburn Last Admin: 10/03/18 03:02 Dose: 30 ml Amlodipine Besylate (Norvasc) 10 mg PO DAILY [facility] Last Admin: 10/03/18 09:23 Dose: Not Given Dextrose (Dextrose 50% Inj) 0 ml IV STAT PRN; Protocol PRN Reason: Hypoglycemia Protocol Dextrose (Glutose 15) 0 gm PO ONCE PRN; Protocol PRN Reason: Hypoglycemia Protocol Glucagon (Glucagen Diagnostic Kit) 0 mg IM STAT PRN; Protocol PRN Reason: Hypoglycemia Protocol Heparin Sodium (Porcine) (Heparin) 5,000 units SC Q12H [facility] Last Admin: 10/03/18 09:25 Dose: 5,000 units Hydralazine HCl (Apresoline) 25 mg PO QID [facility] Last Admin: 10/03/18 13:32 Dose: 25 mg Dextrose (Dextrose 5% In Water 1000 Ml) 1,000 mls @ 0 mls/hr IV .Q0M PRN; Protocol PRN Reason: Hypoglycemia Protocol Sodium Chloride (Sodium Chloride 0.9%) 1,000 mls @ 60 mls/hr IV .[id number] [facility] Last Admin: 10/03/18 13:22 Dose: Not Given Insulin Aspart (Novolog) 0 unit SC ACHS [facility]; Protocol Last Admin: 10/03/18 11:45 Dose: 3 u Insulin Detemir (Levemir) 25 unit SC HS [facility] Last Admin: 10/02/18 21:31 Dose: 25 u Lisinopril (Zestril) 20 mg PO DAILY [facility] Last Admin: 10/03/18 09:23 Dose: Not Given Metoclopramide HCl (Reglan) 10 mg IVP Q6H PRN PRN Reason: Nausea/Vomiting Last Admin: 10/03/18 15:38 Dose: 10 mg Ondansetron HCl (Zofran Inj) 4 mg IVP Q6H PRN PRN Reason: Nausea/Vomiting Last Admin: 10/03/18 03:09 Dose: 4 mg Pantoprazole Sodium (Protonix Inj) 40 mg IVP DAILY [facility] Last Admin: 10/03/18 09:22 Dose: 40 mg Rosuvastatin Calcium (Crestor) 20 mg PO HS [facility] Last Admin: 10/02/18 21:28 Dose: 20 mg Saccharomyces Boulardii (Florastor) 250 mg PO BID [facility] Last Admin: 10/03/18 09:22 Dose: 250 mg - Labs Labs: 10/03/18 07:26 10/03/18 07:26 Assessment and Plan (1) DKA, type 2 Status: Acute (2) Nausea Status: Acute (3) Leukocytosis Status: Acute (4) Ulcerative colitis Status: Acute (5) Hypertension Status: Acute (6) Lipid disorder Status: Acute (7) Diabetes Status: Chronic (8) Prophylactic measure Status: Acute Attending/Attestation - Attestation I have personally seen and examined this patient.: Yes I have fully participated in the care of the patient.: Yes I have reviewed all pertinent clinical information, including history, physical exam and plan: Yes Notes (Text): patient seen, examined and case discussed with day-time resident. patient seen this morning. Patient appears better hydrated. Patient reports nausea seems to be controlled with the Reglan. Patient's blood pressure elevated this morning; given norvasc and lisinopril; will need to monitor blood pressure. patient has yet to have a bowel movement today; white count has normalized while on IV abx. pending discretion of GI if EGD is warranted. Patient reports at home she takes levemir 40 units subqHS and humalog 8units subqtid; I advised the patient we are adjusting her insulin in according to the severity to her nausea and tolerance to her food. 1. Diabetic Ketoacidosis Type 2 Diabetes Assessment/Plan * Anion gap has closed. Downgraded from the ICU 10/01/18 * Accuchecks QAC and HS * hgba1c: 9.4 * patient is off metformin * Novolog sliding scale qACHS * Hypoglycemic protocol * Levemir 40 unitsubqHS 2. Intractable Nausea and Vomiting Assessment/Plan * CT abdomen/Pelvis with IV contrast (09/30/18): no ct evidence of pancreatitis. Suspicious for diffuse large bowel wall thickening which may represent pancolitis. No CT evidence of cholecystitis pancreatitis or high grade small bowel obstruction * elevated Lipase on admission * Zofran 4mg IV Q6H PRN nausea/vomitting * Reglan 10mg IV Q6H PRN nausea/vomitting (2nd line) * pending if symptoms relieved or requires EGD per GI discretion 3. Leukocytosis Assessment/Plan * Procalcitonin: low * Blood culture (09/30/18): negative * MRSA Screen (09/30/18): negative * Urine culture (09/30/18): no growth * Chest xray (09/30/18): no focal consolidation * ESR: 5 CRP: elevated * normalized while on Iv abx 4. History of Ulcerative Colitis Diarrhea Assessment/Plan * CT abdomen/Pelvis with IV contrast (09/30/18): no ct evidence of pancreatitis. Suspicious for diffuse large bowel wall thickening which may represent pancolitis. No CT evidence of cholecystitis pancreatitis or high grade small bowel obstruction * Ciprofloxacin 400mg IV Q12H (active since 10/01/18) * Flagyl 500mg IVPB Q8H (active since 10/01/18) * C. diff toxin (09/30/18): pending * Fecal leukocytes (09/30/18): pending * Stool culture (09/30/18): pending * Stool ova and parasite (09/30/18): pending * Patient has not had a bowel movement to warrant collection * pending calopectin 5. Hypertension, uncontrolled Assessment/Plan * Lisinopril 20mg PO daily * Norvasc 10mg PO daily * add hydralazine 10mg POQID * Monitor bp 6. Lipid Disorder Assessment/Plan * Crestor 20mg POqHS 7. Abnormal EKG Assessment/Plan * EKG (10/01/18): normal sinus rhythm * Echocardiogram (10/01/18): left ventricular systolic function. normal LV segmental wall motion. grade I diastolic dysfunction abnormal relaxation pattern. elevated left atrial pressure by tissue doppler. right ventricular systolic function is normal. left atrium is borderline dilated. no significant * cardiac risk factors: diabetes, hypertension, lipid disorder 8. Prophylactic measure Assessment/Plan * Florastor 250mg PO BID * Heparin 5000 unit [id number] * Protonix 40mg IV q daily * PT/OT eval * Hypoglycemic protocol * NS 60cc/hr Disposition: pending EGD possible. monitor nausea. monitor blood pressure. <Sameer Sun - Last Filed: 10/03/18 16:53> Subjective - Date & Time of Evaluation Date of Evaluation: 10/03/18 Time of Evaluation: 10:00 - Subjective Subjective: Medicine progress note for Dr. Varner Pt seen and examined at bedside. She reports that she is feeling better, but endorses some nausea. Denies fever, chills, abdominal pain, vomiting, diarrhea, hematochezia, melena, vomiting, chest pain, sob, headache, numbness and tingling. Has not had bowel movement for the 2 days but is passing gas Objective - Vital Signs/Intake and Output Vital Signs (last 24 hours): Temp Pulse Resp BP Pulse Ox 98.5 F 90 20 180/82 H 96 10/03/18 07:47 10/03/18 07:47 10/03/18 07:47 10/03/18 00:00 10/03/18 07:47 Intake and Output: 10/03/18 10/03/18 06:59 18:59 Intake Total 870 Balance 870 - Medications Medications: Current Medications Al Hydrox/Mg Hydrox/Simethicone (Maalox 30 Ml) 30 ml PO Q6H PRN PRN Reason: Indigestion / Heartburn Last Admin: 10/03/18 03:02 Dose: 30 ml Amlodipine Besylate (Norvasc) 10 mg PO DAILY [facility] Last Admin: 10/03/18 09:23 Dose: Not Given Dextrose (Dextrose 50% Inj) 0 ml IV STAT PRN; Protocol PRN Reason: Hypoglycemia Protocol Dextrose (Glutose 15) 0 gm PO ONCE PRN; Protocol PRN Reason: Hypoglycemia Protocol Glucagon (Glucagen Diagnostic Kit) 0 mg IM STAT PRN; Protocol PRN Reason: Hypoglycemia Protocol Heparin Sodium (Porcine) (Heparin) 5,000 units SC Q12H [facility] Last Admin: 10/03/18 09:25 Dose: 5,000 units Hydralazine HCl (Apresoline) 25 mg PO QID [facility] Last Admin: 10/03/18 09:21 Dose: 25 mg Dextrose (Dextrose 5% In Water 1000 Ml) 1,000 mls @ 0 mls/hr IV .Q0M PRN; Protocol PRN Reason: Hypoglycemia Protocol Sodium Chloride (Sodium Chloride 0.9%) 1,000 mls @ 60 mls/hr IV .[id number] [facility] Last Admin: 10/02/18 21:29 Dose: Not Given Insulin Aspart (Novolog) 0 unit SC [facility]; Protocol Last Admin: 10/03/18 07:46 Dose: 3 u Insulin Detemir (Levemir) 25 unit SC [facility] Last Admin: 10/02/18 21:31 Dose: 25 u Lisinopril (Zestril) 20 mg PO DAILY [facility] Last Admin: 10/03/18 09:23 Dose: Not Given Metoclopramide HCl (Reglan) 10 mg IVP Q6H PRN PRN Reason: Nausea/Vomiting Last Admin: 10/03/18 08:52 Dose: 10 mg Ondansetron HCl (Zofran Inj) 4 mg IVP Q6H PRN PRN Reason: Nausea/Vomiting Last Admin: 10/03/18 03:09 Dose: 4 mg Pantoprazole Sodium (Protonix Inj) 40 mg IVP DAILY [facility] Last Admin: 10/03/18 09:22 Dose: 40 mg Rosuvastatin Calcium (Crestor) 20 mg PO [facility] Last Admin: 10/02/18 21:28 Dose: 20 mg Saccharomyces Boulardii (Florastor) 250 mg PO BID [facility] Last Admin: 10/03/18 09:22 Dose: 250 mg - Labs Labs: 10/03/18 07:26 10/03/18 07:26 - Additional Findings Additional findings: - Constitutional Appears: Non-toxic, No Acute Distress - Head Exam Head Exam: ATRAUMATIC, NORMAL INSPECTION - Eye Exam Eye Exam: EOMI - ENT Exam ENT Exam: Mucous Membranes Moist - Respiratory Exam Respiratory Exam: Clear to Ausculation Bilateral, NORMAL BREATHING PATTERN. absent: Rhonchi, Wheezes, Respiratory Distress - Cardiovascular Exam Cardiovascular Exam: REGULAR RHYTHM, +S1, +S2 - GI/Abdominal Exam GI & Abdominal Exam: Soft, Normal Bowel Sounds. absent: Distended, Firm, Guarding - Extremities Exam Extremities Exam: Normal Capillary Refill, Normal Inspection. absent: Calf Tenderness, Pedal Edema - Back Exam Back Exam: NORMAL INSPECTION - Neurological Exam Neurological Exam: Alert, Awake - Psychiatric Exam Psychiatric exam: Normal Affect, Normal Mood - Skin Skin Exam: Dry, Normal Color, Warm Assessment and Plan - Assessment and Plan (Free Text) Assessment: Diabetic Ketoacidosis, resolved Type 2 Diabetes Assessment/Plan * Anion gap has closed. Downgraded from the ICU 10/01/18 * Accuchecks QAC and HS * hgba1c is 9.4 * Novolog sliding scale qACHS * Hypoglycemic protocol * Levemir 25 unit SC HS increased to home dose of 40 units SC HS Intractable Nausea and Vomiting Assessment/Plan * CT abdomen/Pelvis with IV contrast (09/30/18): no ct evidence of pancreatitis. Suspicious for diffuse large bowel wall thickening which may represent pancolitis. No CT evidence of cholecystitis pancreatitis or high grade small bowel obstruction * elevated Lipase on admission (359) * Zofran 4mg IV Q6H PRN nausea/vomitting * Reglan 10mg IV Q6H PRN nausea/vomitting (2nd line) * UCx negative Leukocytosis Assessment/Plan * Procalcitonin pending * Blood culture (09/30/18): negative for 3 days * MRSA Screen (09/30/18): negative * Urine culture (09/30/18): negative * Chest xray (09/30/18): no focal consolidation * ESR: 5 CRP: elevated History of Ulcerative Colitis Diarrhea, resolved Assessment/Plan * GI, Dr. Leon, consulted. * May consider endoscopic evaluation Friday if vomiting persists, but if continues to improve, anticipate DC on Friday. Fecal calprotectin * CT abdomen/Pelvis with IV contrast (09/30/18): no ct evidence of pancreatitis. Suspicious for diffuse large bowel wall thickening which may represent pancolitis. No CT evidence of cholecystitis pancreatitis or high grade small bowel obstruction * Ciprofloxacin 400mg IV Q12H (active since 10/01/18) discontinued today as pt without BM * Flagyl 500mg IVPB Q8H (active since 10/01/18) discontinued today as pt without BM * C. diff toxin (09/30/18): pending * Fecal leukocytes (09/30/18): pending * Stool culture (09/30/18): pending * Stool ova and parasite (09/30/18): pending * F/u fecal calproctectin Hypertension Assessment/Plan * Lisinopril 20mg PO daily * Norvasc 10 mg PO daily * Hydralazine 25 mg PO TID * Continue to monitor BP Lipid Disorder Assessment/Plan * Crestor 20mg POqHS * Lipid panel shows TG/CHL/LDL/HDL is 218/141/96/30 Abnormal EKG Assessment/Plan * EKG (10/01/18): normal sinus rhythm * Troponin x3 are normal * Echocardiogram 10/01 shows normal LV function. Grade 1 diastolic dysfunction- abnormal relaxation pattern. Elevated left atrial pressure Left atrium borderline dilated. 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 * Hypoglycemic protocol
--- NOTE | 2018-10-03 11:51 | CP.PCM.PN ---
<Carrington Caicedo - Last Filed: 10/03/18 11:47> Subjective - Date & Time of Evaluation Date of Evaluation: 10/03/18 Time of Evaluation: 09:20 - Subjective Subjective: PGY-4 GI Fellow Prog Note Pt sleeping in bed when seen this AM. States nausea continues to improve and is tolerating diet. No BMs nor abd pain. 5 point ROS negative other than stated above Objective - Vital Signs/Intake and Output Vital Signs (last 24 hours): Temp Pulse Resp BP Pulse Ox 98.5 F 90 20 180/82 H 96 10/03/18 07:47 10/03/18 07:47 10/03/18 07:47 10/03/18 00:00 10/03/18 07:47 Intake and Output: 10/03/18 10/03/18 06:59 18:59 Intake Total 870 Balance 870 - Medications Medications: Current Medications Al Hydrox/Mg Hydrox/Simethicone (Maalox 30 Ml) 30 ml PO Q6H PRN PRN Reason: Indigestion / Heartburn Last Admin: 10/03/18 03:02 Dose: 30 ml Amlodipine Besylate (Norvasc) 10 mg PO DAILY [facility] Last Admin: 10/03/18 09:23 Dose: Not Given Dextrose (Dextrose 50% Inj) 0 ml IV STAT PRN; Protocol PRN Reason: Hypoglycemia Protocol Dextrose (Glutose 15) 0 gm PO ONCE PRN; Protocol PRN Reason: Hypoglycemia Protocol Glucagon (Glucagen Diagnostic Kit) 0 mg IM STAT PRN; Protocol PRN Reason: Hypoglycemia Protocol Heparin Sodium (Porcine) (Heparin) 5,000 units SC Q12H [facility] Last Admin: 10/03/18 09:25 Dose: 5,000 units Hydralazine HCl (Apresoline) 25 mg PO QID [facility] Last Admin: 10/03/18 09:21 Dose: 25 mg Dextrose (Dextrose 5% In Water 1000 Ml) 1,000 mls @ 0 mls/hr IV .Q0M PRN; Protocol PRN Reason: Hypoglycemia Protocol Sodium Chloride (Sodium Chloride 0.9%) 1,000 mls @ 60 mls/hr IV .[id number] [facility] Last Admin: 10/02/18 21:29 Dose: Not Given Insulin Aspart (Novolog) 0 unit SC ACHS [facility]; Protocol Last Admin: 10/03/18 11:45 Dose: 3 u Insulin Detemir (Levemir) 25 unit SC [facility] Last Admin: 10/02/18 21:31 Dose: 25 u Lisinopril (Zestril) 20 mg PO DAILY [facility] Last Admin: 10/03/18 09:23 Dose: Not Given Metoclopramide HCl (Reglan) 10 mg IVP Q6H PRN PRN Reason: Nausea/Vomiting Last Admin: 10/03/18 08:52 Dose: 10 mg Ondansetron HCl (Zofran Inj) 4 mg IVP Q6H PRN PRN Reason: Nausea/Vomiting Last Admin: 10/03/18 03:09 Dose: 4 mg Pantoprazole Sodium (Protonix Inj) 40 mg IVP DAILY [facility] Last Admin: 10/03/18 09:22 Dose: 40 mg Rosuvastatin Calcium (Crestor) 20 mg PO HS [facility] Last Admin: 10/02/18 21:28 Dose: 20 mg Saccharomyces Boulardii (Florastor) 250 mg PO BID [facility] Last Admin: 10/03/18 09:22 Dose: 250 mg - Labs Labs: 10/03/18 07:26 10/03/18 07:26 - Constitutional Appears: Well, No Acute Distress - Head Exam Head Exam: ATRAUMATIC, NORMAL INSPECTION - Eye Exam Eye Exam: EOMI. absent: Scleral icterus - ENT Exam ENT Exam: Mucous Membranes Moist. absent: Mucous Membranes Dry - Respiratory Exam Respiratory Exam: NORMAL BREATHING PATTERN. absent: Accessory Muscle Use, Respiratory Distress - GI/Abdominal Exam GI & Abdominal Exam: Soft, Normal Bowel Sounds. absent: Bruit, Distended, Firm, Guarding, Rigid, Tenderness, Mass, Organomegaly, Pulsatile Mass Assessment and Plan - Assessment and Plan (Free Text) Assessment: 58 year old female with PMH of severe refractory Ulcerative colitis on Entyvio (on Entyvio-last dose 08/14/2018, failed multiple medications), Diabetes, HTN, HLD, Obesity presenting with vomiting and diarrhea. Active treatment of DKA with CT A/P showing pancolitis. Prior colonoscopy 08/2017. Plan: -diarrhea and vomiting slowly improving and likely related to improving DKA -low suspicion for UC flare -leukocytosis improving -On Cipro/Flagyl, will DC given no BM, suspect chronic colitis on CT -Send stool studies if patient has a bowel movement -supportive care- anti-emetics, PPI ACB -primary team managing DKA -Advance as tolerated -may consider endoscopic evaluation Friday if vomiting persists, but if continues to improve, anticipate DC on Friday -Counseled pt to avoid NSAIDs in setting of IBD; APAP PRN Pt seen and examined with Dr. Julian; please see attestation for further recs/changes. <Jeanie Julian - Last Filed: 10/03/18 21:42> Objective - Vital Signs/Intake and Output Vital Signs (last 24 hours): Temp Pulse Resp BP Pulse Ox 97.9 F 90 20 186/84 H 98 10/03/18 16:00 10/03/18 16:00 10/03/18 16:00 10/03/18 20:49 10/03/18 16:00 Intake and Output: 10/03/18 10/04/18 18:59 06:59 Intake Total 880 Balance 880 - Medications Medications: Current Medications Al Hydrox/Mg Hydrox/Simethicone (Maalox 30 Ml) 30 ml PO Q6H PRN PRN Reason: Indigestion / Heartburn Last Admin: 10/03/18 03:02 Dose: 30 ml Amlodipine Besylate (Norvasc) 10 mg PO DAILY [facility] Last Admin: 10/03/18 09:23 Dose: Not Given Dextrose (Dextrose 50% Inj) 0 ml IV STAT PRN; Protocol PRN Reason: Hypoglycemia Protocol Dextrose (Glutose 15) 0 gm PO ONCE PRN; Protocol PRN Reason: Hypoglycemia Protocol Glucagon (Glucagen Diagnostic Kit) 0 mg IM STAT PRN; Protocol PRN Reason: Hypoglycemia Protocol Heparin Sodium (Porcine) (Heparin) 5,000 units SC Q12H [facility] Last Admin: 10/03/18 21:30 Dose: 5,000 units Insulin Aspart (Novolog) 0 unit SC [facility]; Protocol Last Admin: 10/03/18 21:31 Dose: Not Given Insulin Detemir (Levemir) 40 unit SC [facility] Last Admin: 10/03/18 21:29 Dose: 40 u Lisinopril (Zestril) 20 mg PO DAILY [facility] Last Admin: 10/03/18 09:23 Dose: Not Given Metoclopramide HCl (Reglan) 10 mg IVP Q6H PRN PRN Reason: Nausea/Vomiting Last Admin: 10/03/18 15:38 Dose: 10 mg Ondansetron HCl (Zofran Inj) 4 mg IVP Q6H PRN PRN Reason: Nausea/Vomiting Last Admin: 10/03/18 03:09 Dose: 4 mg Pantoprazole Sodium (Protonix Inj) 40 mg IVP DAILY [facility] Last Admin: 10/03/18 09:22 Dose: 40 mg Rosuvastatin Calcium (Crestor) 20 mg PO HS [facility] Last Admin: 10/03/18 21:31 Dose: 20 mg Saccharomyces Boulardii (Florastor) 250 mg PO BID [facility] Last Admin: 10/03/18 18:00 Dose: 250 mg - Labs Labs: 10/03/18 07:26 10/03/18 07:26 Attending/Attestation - Attestation I have personally seen and examined this patient.: Yes I have fully participated in the care of the patient.: Yes I have reviewed all pertinent clinical information, including history, physical exam and plan: Yes Notes (Text): 10/03/18 21:35 I have seen and examined the patient with the GI fellow. In summary, 58 year old female with PMH of severe refractory distal ulcerative colitis currently on Entyvio (last dose 08/14/2018, with possible consideration of change to Stelara), uncontrolled DM (HbA1c 9.4), HTN, HLD, and obesity p/w n/v and diarrhea found to be in DKA with CT a/p showing pancolitis. Prior colonoscopy done 08/2017 showed severe inflammation in the rectum and up to the rectosigmoid. General: NAD Abd: soft, mildly distended, nontender Plan: -suspect sxs more related to her DKA rather than true UC flare as she notes her BMs have been relatively the same (~10 episodes/day, nonbloody) for the past month -advance diet as tolerated -would d/c abx as no further episodes of diarrhea -management of DKA as per primary team -due for Entyvio in early October and to f/u with her outpt GI (Dr. Perez, [place]) for further management -avoid NSAIDs -EGD only if nausea persists, otherwise, if able to tolerate diet, would be stable for d/c from gi standpoint 10/03/18 21:39
[2018-10-03] MEDS: Sodium Chloride 0.9% 1,000 ML IV SCH (13:22)
[2018-10-03] MEDS ORDERED: Insulin Detemir 100 units/ml Vial (Levemir) SC SCH (22:00)
[2018-10-04 01:13] VITALS: PULSE 98
[2018-10-04] MEDS: (Novolog) Insulin Aspart, Recombinant 100 u/ml 10 ml vial SC SCH ×2 (07:55→11:29)
--- NOTE | 2018-10-04 08:29 | CP.PCM.PN ---
<Carrington Caicedo - Last Filed: 10/04/18 10:28> Subjective - Date & Time of Evaluation Date of Evaluation: 10/04/18 Time of Evaluation: 09:40 - Subjective Subjective: PGY-4 GI Fellow Prog Note Pt lying in bed, at bedside when seen this AM. States nausea continue to improve. Tolerating diet but states that she only eats about 1/3 of meal. No emesis, abd pain, nor BM. 5 point ROS negative other than stated above Objective - Vital Signs/Intake and Output Vital Signs (last 24 hours): Temp Pulse Resp BP Pulse Ox 99.2 F 98 H 20 149/80 96 10/04/18 00:00 10/04/18 00:00 10/04/18 00:00 10/04/18 00:00 10/04/18 00:00 - Medications Medications: Current Medications Al Hydrox/Mg Hydrox/Simethicone (Maalox 30 Ml) 30 ml PO Q6H PRN PRN Reason: Indigestion / Heartburn Last Admin: 10/03/18 03:02 Dose: 30 ml Amlodipine Besylate (Norvasc) 10 mg PO DAILY [facility] Last Admin: 10/03/18 09:23 Dose: Not Given Dextrose (Dextrose 50% Inj) 0 ml IV STAT PRN; Protocol PRN Reason: Hypoglycemia Protocol Dextrose (Glutose 15) 0 gm PO ONCE PRN; Protocol PRN Reason: Hypoglycemia Protocol Glucagon (Glucagen Diagnostic Kit) 0 mg IM STAT PRN; Protocol PRN Reason: Hypoglycemia Protocol Heparin Sodium (Porcine) (Heparin) 5,000 units SC Q12H [facility] Last Admin: 10/03/18 21:30 Dose: 5,000 units Insulin Aspart (Novolog) 0 unit SC ACHS [facility]; Protocol Last Admin: 10/04/18 07:55 Dose: 3 u Insulin Detemir (Levemir) 40 unit SC HS [facility] Last Admin: 10/03/18 21:29 Dose: 40 u Lisinopril (Zestril) 20 mg PO DAILY [facility] Last Admin: 10/03/18 09:23 Dose: Not Given Metoclopramide HCl (Reglan) 10 mg IVP Q6H PRN PRN Reason: Nausea/Vomiting Last Admin: 10/04/18 07:22 Dose: 10 mg Ondansetron HCl (Zofran Inj) 4 mg IVP Q6H PRN PRN Reason: Nausea/Vomiting Last Admin: 10/03/18 03:09 Dose: 4 mg Pantoprazole Sodium (Protonix Inj) 40 mg IVP DAILY [facility] Last Admin: 10/03/18 09:22 Dose: 40 mg Rosuvastatin Calcium (Crestor) 20 mg PO HS [facility] Last Admin: 10/03/18 21:31 Dose: 20 mg Saccharomyces Boulardii (Florastor) 250 mg PO BID [facility] Last Admin: 10/03/18 18:00 Dose: 250 mg - Labs Labs: 10/03/18 07:26 10/03/18 07:26 - Constitutional Appears: Well, No Acute Distress - Head Exam Head Exam: ATRAUMATIC, NORMAL INSPECTION - Eye Exam Eye Exam: EOMI. absent: Scleral icterus - ENT Exam ENT Exam: Mucous Membranes Moist. absent: Mucous Membranes Dry - Respiratory Exam Respiratory Exam: NORMAL BREATHING PATTERN. absent: Accessory Muscle Use, Respiratory Distress - GI/Abdominal Exam GI & Abdominal Exam: Soft, Normal Bowel Sounds. absent: Bruit, Distended, Firm, Guarding, Rigid, Tenderness, Mass, Organomegaly, Pulsatile Mass Assessment and Plan - Assessment and Plan (Free Text) Assessment: 58 year old female with PMH of severe refractory Ulcerative colitis on Entyvio (on Entyvio-last dose 08/14/2018, failed multiple medications), Diabetes, HTN, HLD, Obesity presenting with vomiting and diarrhea. Treated DKA with CT A/P showing pancolitis. Prior colonoscopy 08/2017. Plan: -Suspect EGD low yield in setting of slowly resolving symptoms; therefore, OK to DC from GI standpoint with BP/Blood sugar optimization -Nausea slowly improving and likely related to improving hyperglycemia -low suspicion for UC flare; Abx DCed 10/03 -Supportive care, anti-emetics, PPI AC -Counseled pt to avoid NSAIDs in setting of IBD; APAP PRN -Counseled on importance of f/u with primary GI doc (Dr. Perez @ [place]) for vedolizumab dosing Pt seen and examined with Dr. Julian; please see attestation for further recs/changes. <Jeanie Julian - Last Filed: 10/04/18 10:34> Objective - Vital Signs/Intake and Output Vital Signs (last 24 hours): Temp Pulse Resp BP Pulse Ox 98.4 F 98 H 20 185/82 H 95 10/04/18 08:30 10/04/18 08:30 10/04/18 08:30 10/04/18 08:30 10/04/18 08:30 - Medications Medications: Current Medications Al Hydrox/Mg Hydrox/Simethicone (Maalox 30 Ml) 30 ml PO Q6H PRN PRN Reason: Indigestion / Heartburn Last Admin: 10/03/18 03:02 Dose: 30 ml Dextrose (Dextrose 50% Inj) 0 ml IV STAT PRN; Protocol PRN Reason: Hypoglycemia Protocol Dextrose (Glutose 15) 0 gm PO ONCE PRN; Protocol PRN Reason: Hypoglycemia Protocol Glucagon (Glucagen Diagnostic Kit) 0 mg IM STAT PRN; Protocol PRN Reason: Hypoglycemia Protocol Heparin Sodium (Porcine) (Heparin) 5,000 units SC Q12H [facility] Last Admin: 10/04/18 10:04 Dose: 5,000 units Insulin Aspart (Novolog) 0 unit SC [facility]; Protocol Last Admin: 10/04/18 07:55 Dose: 3 u Insulin Detemir (Levemir) 40 unit SC [facility] Last Admin: 10/03/18 21:29 Dose: 40 u Lisinopril (Zestril) 40 mg PO DAILY [facility] Metoclopramide HCl (Reglan) 10 mg IVP Q6H PRN PRN Reason: Nausea/Vomiting Last Admin: 10/04/18 07:22 Dose: 10 mg Ondansetron HCl (Zofran Inj) 4 mg IVP Q6H PRN PRN Reason: Nausea/Vomiting Last Admin: 10/03/18 03:09 Dose: 4 mg Pantoprazole Sodium (Protonix Inj) 40 mg IVP DAILY [facility] Last Admin: 10/04/18 09:21 Dose: 40 mg Rosuvastatin Calcium (Crestor) 20 mg PO HS [facility] Last Admin: 10/03/18 21:31 Dose: 20 mg Saccharomyces Boulardii (Florastor) 250 mg PO BID [facility] Last Admin: 10/04/18 09:21 Dose: 250 mg - Labs Labs: 10/04/18 08:15 10/04/18 08:15 Attending/Attestation - Attestation I have personally seen and examined this patient.: Yes I have fully participated in the care of the patient.: Yes I have reviewed all pertinent clinical information, including history, physical exam and plan: Yes Notes (Text): 10/04/18 10:31 I have seen and examined the patient with the GI fellow. Overall, pt doing well and feels improved compared to yesterday. Still some residual nausea this am. May have an element of diabetic gastroparesis which may be contributing to her persistent sxs in addition to the hyperglycemia. Recommend small, frequent meals, anti-emetics prn and continued titration of insulin. EGD likely will be low-yield and would not keep patient in house for this. If improved later today, would be stable for d/c from GI standpoint. Will sign off, pls call with questions.
[2018-10-04 08:31] VITALS: BP 185/82; TEMP 98.4
[2018-10-04 08:54] LABS: BASO % 0.4 % (0.0-2.0); EOS # 0.2 K/uL (0.0-0.7); EOS % 2.4 % (0.0-4.0); HEMOGLOBIN 17.8 g/dL (11.0-16.0); LYMPH # 2.6 K/uL (1.0-4.3); LYMPH % 28.2 % (20.0-40.0); MEAN CELL VOLUME 90.1 fL (81.0-99.0); MEAN CORPUSCULAR HEMOGLOBIN 31.7 pg (27.0-31.0); MEAN CORPUSCULAR HGB CONC 35.2 g/dL (33.0-37.0); MEAN PLATELET VOLUME 8.7 fL (7.2-11.7); MONO # 1.2 K/uL (0.0-0.8); MONO % 13.2 % (0.0-10.0); NEUT # 5.3 K/uL (1.8-7.0); NEUT % 55.8 % (50.0-75.0); NRBC % 0.5 % (0.0-2.0); RBC 5.6 Mil/uL (3.80-5.20); RED CELL DISTRIBUTION WIDTH 13.1 % (11.5-14.5); WHITE BLOOD COUNT 9.4 K/uL (4.8-10.8)
[2018-10-04 09:18] LABS: ALB/GLOB RATIO 1.5 (1.0-2.1); ALBUMIN 4.5 g/dL (3.5-5.0); ALT/SGPT 21 U/L (9-52); AST/SGOT 38 U/L (14-36); BLOOD UREA NITROGEN 14 mg/dL (7-17); CALCIUM 9.4 mg/dl (8.6-10.4); GFR NON-AFRICAN AMERICAN > 60
[2018-10-04] MEDS: Saccharomyces Boulardi 250 mg Cap PO SCH (09:21)
--- NOTE | 2018-10-04 12:24 | CP.PCM.PN ---
Subjective - Date & Time of Evaluation Date of Evaluation: 10/04/18 Time of Evaluation: 08:24 Objective - Vital Signs/Intake and Output Vital Signs (last 24 hours): Temp Pulse Resp BP Pulse Ox 98.4 F 98 H 20 185/82 H 95 10/04/18 08:30 10/04/18 08:30 10/04/18 08:30 10/04/18 08:30 10/04/18 08:30 - Medications Medications: Current Medications Al Hydrox/Mg Hydrox/Simethicone (Maalox 30 Ml) 30 ml PO Q6H PRN PRN Reason: Indigestion / Heartburn Last Admin: 10/03/18 03:02 Dose: 30 ml Dextrose (Dextrose 50% Inj) 0 ml IV STAT PRN; Protocol PRN Reason: Hypoglycemia Protocol Dextrose (Glutose 15) 0 gm PO ONCE PRN; Protocol PRN Reason: Hypoglycemia Protocol Glucagon (Glucagen Diagnostic Kit) 0 mg IM STAT PRN; Protocol PRN Reason: Hypoglycemia Protocol Heparin Sodium (Porcine) (Heparin) 5,000 units SC Q12H [facility] Last Admin: 10/04/18 10:04 Dose: 5,000 units Insulin Aspart (Novolog) 0 unit SC [facility]; Protocol Last Admin: 10/04/18 11:29 Dose: 3 u Insulin Detemir (Levemir) 40 unit SC [facility] Last Admin: 10/03/18 21:29 Dose: 40 u Lisinopril (Zestril) 40 mg PO DAILY [facility] Metoclopramide HCl (Reglan) 10 mg IVP Q6H PRN PRN Reason: Nausea/Vomiting Last Admin: 10/04/18 07:22 Dose: 10 mg Ondansetron HCl (Zofran Inj) 4 mg IVP Q6H PRN PRN Reason: Nausea/Vomiting Last Admin: 10/03/18 03:09 Dose: 4 mg Pantoprazole Sodium (Protonix Inj) 40 mg IVP DAILY [facility] Last Admin: 10/04/18 09:21 Dose: 40 mg Rosuvastatin Calcium (Crestor) 20 mg PO HS [facility] Last Admin: 10/03/18 21:31 Dose: 20 mg Saccharomyces Boulardii (Florastor) 250 mg PO BID [facility] Last Admin: 10/04/18 09:21 Dose: 250 mg - Labs Labs: 10/04/18 08:15 10/04/18 08:15
--- NOTE | 2018-10-04 12:29 | CP.PCM.DIS ---
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 Time Spent in preparation of Discharge (in minutes): 45 Diagnosis - Discharge Diagnosis (1) DKA (diabetic ketoacidoses) Status: Resolved Priority: High (2) T2DM (type 2 diabetes mellitus) Status: Chronic Priority: High (3) HTN (hypertension) Status: Chronic Priority: Medium (4) Hyperlipemia Status: Chronic Priority: Medium Hospital Course - Lab Results Lab Results: Micro Results 09/30/18 16:40 Blood Blood Culture - Preliminary NO GROWTH AFTER 3 DAYS 09/30/18 16:40 Blood Blood Culture - Preliminary NO GROWTH AFTER 3 DAYS 09/30/18 22:19 Urine,Clean Catch Urine Culture - Final No Growth (<1,000 CFU/ML) 09/30/18 16:40 Naris MRSA Culture (Admit) - Final MRSA NOT DETECTED Most Recent Lab Values WBC 9.4 K/uL (4.8-10.8) 10/04/18 08:15 RBC 5.60 Mil/uL (3.80-5.20) H 10/04/18 08:15 Hgb 17.8 g/dL (11.0-16.0) H 10/04/18 08:15 Hct 50.5 % (34.0-47.0) H 10/04/18 08:15 MCV 90.1 fL (81.0-99.0) 10/04/18 08:15 MCH 31.7 pg (27.0-31.0) H 10/04/18 08:15 MCHC 35.2 g/dL (33.0-37.0) 10/04/18 08:15 RDW 13.1 % (11.5-14.5) 10/04/18 08:15 Plt Count 269 K/uL (130-400) 10/04/18 08:15 MPV 8.7 fL (7.2-11.7) 10/04/18 08:15 Neut % (Auto) 55.8 % (50.0-75.0) 10/04/18 08:15 Lymph % (Auto) 28.2 % (20.0-40.0) 10/04/18 08:15 [place] % (Auto) 13.2 % (0.0-10.0) H 10/04/18 08:15 Eos % (Auto) 2.4 % (0.0-4.0) 10/04/18 08:15 Baso % (Auto) 0.4 % (0.0-2.0) 10/04/18 08:15 Neut # (Auto) 5.3 K/uL (1.8-7.0) 10/04/18 08:15 Lymph # (Auto) 2.6 K/uL (1.0-4.3) 10/04/18 08:15 [place] # (Auto) 1.2 K/uL (0.0-0.8) H 10/04/18 08:15 Eos # (Auto) 0.2 K/uL (0.0-0.7) 10/04/18 08:15 Baso # (Auto) 0.0 K/uL (0.0-0.2) 10/04/18 08:15 Neutrophils % (Manual) 88 % (50-75) H 09/30/18 12:48 Lymphocytes % (Manual) 8 % (20-40) L 09/30/18 12:48 Monocytes % (Manual) 4 % (0-10) 09/30/18 12:48 Platelet Estimate Normal (NORMAL) 09/30/18 12:48 ESR 3 mm/hr (0-20) 10/03/18 16:58 Puncture Site Lr 09/30/18 14:48 pCO2 31 mm/Hg (35-45) L 09/30/18 14:48 pO2 84 mm/Hg (80-100) 09/30/18 14:48 HCO3 24.2 mmol/L (21-28) 09/30/18 14:48 ABG pH 7.46 (7.35-7.45) H 09/30/18 14:48 ABG Total CO2 23.0 mmol/L (22-28) 09/30/18 14:48 ABG O2 Saturation 97.7 % (95-98) 09/30/18 14:48 ABG Base Excess -0.8 mmol/L (-2.0-3.0) 09/30/18 14:48 ABG Hemoglobin 15.5 g/dL (11.7-17.4) 09/30/18 14:48 ABG Carboxyhemoglobin 1.5 % (0.5-1.5) 09/30/18 14:48 POC ABG HHb (Measured) 2.2 % (0.0-5.0) 09/30/18 14:48 ABG Methemoglobin 1.0 % (0.0-3.0) 09/30/18 14:48 Ryan Test Pos 09/30/18 14:48 Hgb O2 Saturation 95.3 % (95.0-98.0) 09/30/18 14:48 Sodium 133 mmol/L (132-148) 10/04/18 08:15 Potassium 4.0 mmol/L (3.6-5.2) 10/04/18 08:15 Chloride 94 mmol/L (98-107) L 10/04/18 08:15 Carbon Dioxide 27 mmol/L (22-30) 10/04/18 08:15 Anion Gap 16 (10-20) 10/04/18 08:15 BUN 14 mg/dL (7-17) 10/04/18 08:15 Creatinine 0.7 mg/dL (0.7-1.2) 10/04/18 08:15 Est GFR ( Amer) > 60 10/04/18 08:15 Est GFR (Non-Af Amer) > 60 10/04/18 08:15 POC Glucose (mg/dL) 232 mg/dL (65-110) H 10/04/18 11:23 Random Glucose 205 mg/dL (65-105) H 10/04/18 08:15 Hemoglobin A1c 9.4 % (4.2-6.5) H 10/02/18 06:41 Calcium 9.4 mg/dl (8.6-10.4) 10/04/18 08:15 Phosphorus 2.7 mg/dL (2.5-4.5) 10/04/18 08:15 Magnesium 1.9 mg/dL (1.6-2.3) 10/04/18 08:15 Total Bilirubin 0.7 mg/dL (0.2-1.3) 10/04/18 08:15 AST 38 U/L (14-36) H D 10/04/18 08:15 ALT 21 U/L (9-52) 10/04/18 08:15 Alkaline Phosphatase 109 U/L (38-126) 10/04/18 08:15 Total Creatine Kinase 59 U/L (30-135) 10/01/18 05:00 CK-MB (Mass) 0.95 ng/mL (0.0-3.38) 10/01/18 05:00 Troponin I 0.0160 ng/mL (0.00-0.120) 10/01/18 05:00 C-Reactive Protein 16.30 mg/L (0.0-9.9) H 09/30/18 16:40 Total Protein 7.4 g/dL (6.3-8.3) 10/04/18 08:15 Albumin 4.5 g/dL (3.5-5.0) 10/04/18 08:15 Globulin 3.0 gm/dL (2.2-3.9) 10/04/18 08:15 Albumin/Globulin Ratio 1.5 (1.0-2.1) 10/04/18 08:15 Triglycerides 218 mg/dL (0-149) H 10/02/18 06:46 Cholesterol 141 mg/dL (0-199) 10/02/18 06:46 LDL Cholesterol Direct 96 mg/dL (0-129) 10/02/18 06:46 HDL Cholesterol 30 mg/dL (30-70) 10/02/18 06:46 Lipase 359 U/L (23-300) H 09/30/18 12:55 Procalcitonin < 0.05 NG/ML (0.19-0.49) L 10/01/18 16:12 Urine Color Straw (YELLOW) 09/30/18 13:08 Urine Clarity Clear (Clear) 09/30/18 13:08 Urine pH 5.0 (5.0-8.0) 09/30/18 13:08 Ur Specific [place] 1.029 (1.003-1.030) 09/30/18 13:08 Urine Protein 1+ mg/dL (NEGATIVE) H 09/30/18 13:08 Urine Glucose (UA) 3+ mg/dL (Normal) H 09/30/18 13:08 Urine Ketones 2+ mg/dL (NEGATIVE) H 09/30/18 13:08 Urine Blood Negative (NEGATIVE) 09/30/18 13:08 Urine Nitrate Negative (NEGATIVE) 09/30/18 13:08 Urine Bilirubin Negative (NEGATIVE) 09/30/18 13:08 Urine Urobilinogen Normal mg/dL (0.2-1.0) 09/30/18 13:08 Ur Leukocyte Esterase Neg Avelina/uL (Negative) 09/30/18 13:08 Urine WBC (Auto) < 1 /hpf (0-5) 09/30/18 13:08 Urine RBC (Auto) < 1 /hpf (0-3) 09/30/18 13:08 Ur Squamous Epith Cells 2 /hpf (0-5) 09/30/18 13:08 Hyaline Casts 0-2 /lpf (0-2) 09/30/18 13:08 B-Hydroxybutyrate 0.79 mM (0.02-0.27) H 09/30/18 17:47 Influenza Typ A,B (EIA) Negative for flu a/b (NEGATIVE) 09/30/18 16:40 - Hospital Course Hospital Course: 58 yo female with PMH HTN, HLD, DM2, ulcerative colitis, and colonic polyps, presents to the ED with c/o nausea and greater than 15 episodes of vomiting occurring since last evening. Reports episodes of diarrhea last evening but states she had normal forming BM this am. States that having 10 episodes of diarrhea/day is her baseline 2/2 to her ulcerative colitis. Unable to tolerate PO intake. States she went to her PMD Dr. Dumont this am with these complaints and that he instructed her to go straight to the ED for further eval. States he checked her urine sample in the clinic, positive for ketones. Pt reports last being hospitalized for hyperglycemia many years ago, denies recent admissions for DKA, reports compliance with home DM medications and checking her fingersticks regularly. Reports her has been sick at home for the past several days with cold-like symptoms. Denies fevers, chest pain, sob, abd pain, constipation, urinary complaints, or other symptoms. Patient was admitted for DKA. She was initially admitted to the ICU on insulin drip and IVF. A1c 9.4. GI was consulted for nausea and vomiting. Suspect symptoms may be related to gastroparesis in addition to DKA as symptoms improved with Reglan vs Zofran. Additionally, patient complained of diarrhea and was started on IV abx. Diarrhea resolved and anx discontinued as this was likely not related to a UC exacerbation. CT abdomen/Pelvis with IV contrast (09/30/18): no evidence of pancreatitis. Suspicious for diffuse large bowel wall thickening which may represent pancolitis. No CT evidence of cholecystitis pancreatitis or high grade small bowel obstruction. Patient's BP was monitored. She was hypertensive throughout hospitalization, and lisinopril dose was increased from 20 to 40 mg. Echo was done for abnormal EKG. Echocardiogram 10/01 showed normal LV function. Grade 1 diastolic dysfunction-abnormal relaxation pattern. Elevated left atrial pressure Left atrium borderline dilated. Patient was continued on Crestor for hyperlipidemia. Upon discharge, patient's glucose was better controlled on SC insulin regimen. Increased home insulin Levemir from 25 to 40 units. Held metformin due to acidosis. She had mild nausea but denied vomiting. She was tolerating PO diet but had low appetite. GI did not recommend EGD inpatient but rather have patient see her chair caner as an outpatient following discharge. Discharge Exam - Head Exam Head Exam: ATRAUMATIC, NORMAL INSPECTION - Eye Exam Eye Exam: EOMI, Normal appearance, PERRL - ENT Exam ENT Exam: Mucous Membranes Moist - Neck Exam Neck exam: Normal Inspection - Respiratory Exam Respiratory Exam: Clear to PA & Lateral, NORMAL BREATHING PATTERN, UNREMARKABLE - Cardiovascular Exam Cardiovascular Exam: RRR, +S1, +S2 - GI/Abdominal Exam GI & Abdominal Exam: Soft, Unremarkable. absent: Tenderness - Extremities Exam Extremities exam: normal inspection, pedal pulses present - Neurological Exam Neurological exam: Alert, CN II-XII Intact, Oriented x3 - Psychiatric Exam Psychiatric exam: Normal Affect, Normal Mood - Skin Skin Exam: Dry, Normal Color, Warm Discharge Plan - Discharge Medications Prescriptions: RX: Lisinopril [Zestril] 40 mg PO DAILY #30 tab Metoclopramide [Reglan] 5 mg PO Q6H PRN #28 tab PRN Reason: Nausea/Vomiting - Follow Up Plan Condition: IMPROVED Disposition: HOME/ ROUTINE Patient education suggested?: Yes Instructions: Diabetic Ketoacidosis (DC), Lisinopril, Metoclopramide Additional Instructions: Follow-up with your primary care physician, Dr. Dumont, within 3-5 days of discharge. You will need your blood pressure checked. Follow-up with your chair caner, Dr. Perez, within 1 week of discharge. Take all medications as prescribed: Levemir 40 units at bedtime Humalog 10 mg three times daily before meals Lisinopril 40 mg daily Crestor 20 mg at bedtime UC medications as prescribed by your chair caner. Hold Metformin until instructed by Dr. Dumont You may take Reglan 5 mg every 6 hours as needed for nausea and vomiting. If symptoms worsen or recur, return to the nearest emergency room. 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 Diagnosis - Discharge Diagnosis (1) DKA, type 2 Status: Acute (2) Nausea Status: Acute (3) Leukocytosis Status: Acute (4) Ulcerative colitis Status: Acute (5) Hypertension Status: Acute (6) Lipid disorder Status: Acute (7) Diabetes Status: Chronic (8) Prophylactic measure Status: Acute Hospital Course - Lab Results Lab Results: Micro Results 09/30/18 16:40 Blood Blood Culture - Preliminary NO GROWTH AFTER 3 DAYS 09/30/18 16:40 Blood Blood Culture - Preliminary NO GROWTH AFTER 3 DAYS 09/30/18 22:19 Urine,Clean Catch Urine Culture - Final No Growth (<1,000 CFU/ML) 09/30/18 16:40 Naris MRSA Culture (Admit) - Final MRSA NOT DETECTED Most Recent Lab Values WBC 9.4 K/uL (4.8-10.8) 10/04/18 08:15 RBC 5.60 Mil/uL (3.80-5.20) H 10/04/18 08:15 Hgb 17.8 g/dL (11.0-16.0) H 10/04/18 08:15 Hct 50.5 % (34.0-47.0) H 10/04/18 08:15 MCV 90.1 fL (81.0-99.0) 10/04/18 08:15 MCH 31.7 pg (27.0-31.0) H 10/04/18 08:15 MCHC 35.2 g/dL (33.0-37.0) 10/04/18 08:15 RDW 13.1 % (11.5-14.5) 10/04/18 08:15 Plt Count 269 K/uL (130-400) 10/04/18 08:15 MPV 8.7 fL (7.2-11.7) 10/04/18 08:15 Neut % (Auto) 55.8 % (50.0-75.0) 10/04/18 08:15 Lymph % (Auto) 28.2 % (20.0-40.0) 10/04/18 08:15 [place] % (Auto) 13.2 % (0.0-10.0) H 10/04/18 08:15 Eos % (Auto) 2.4 % (0.0-4.0) 10/04/18 08:15 Baso % (Auto) 0.4 % (0.0-2.0) 10/04/18 08:15 Neut # (Auto) 5.3 K/uL (1.8-7.0) 10/04/18 08:15 Lymph # (Auto) 2.6 K/uL (1.0-4.3) 10/04/18 08:15 [place] # (Auto) 1.2 K/uL (0.0-0.8) H 10/04/18 08:15 Eos # (Auto) 0.2 K/uL (0.0-0.7) 10/04/18 08:15 Baso # (Auto) 0.0 K/uL (0.0-0.2) 10/04/18 08:15 Neutrophils % (Manual) 88 % (50-75) H 09/30/18 12:48 Lymphocytes % (Manual) 8 % (20-40) L 09/30/18 12:48 Monocytes % (Manual) 4 % (0-10) 09/30/18 12:48 Platelet Estimate Normal (NORMAL) 09/30/18 12:48 ESR 3 mm/hr (0-20) 10/03/18 16:58 Puncture Site Lr 09/30/18 14:48 pCO2 31 mm/Hg (35-45) L 09/30/18 14:48 pO2 84 mm/Hg (80-100) 09/30/18 14:48 HCO3 24.2 mmol/L (21-28) 09/30/18 14:48 ABG pH 7.46 (7.35-7.45) H 09/30/18 14:48 ABG Total CO2 23.0 mmol/L (22-28) 09/30/18 14:48 ABG O2 Saturation 97.7 % (95-98) 09/30/18 14:48 ABG Base Excess -0.8 mmol/L (-2.0-3.0) 09/30/18 14:48 ABG Hemoglobin 15.5 g/dL (11.7-17.4) 09/30/18 14:48 ABG Carboxyhemoglobin 1.5 % (0.5-1.5) 09/30/18 14:48 POC ABG HHb (Measured) 2.2 % (0.0-5.0) 09/30/18 14:48 ABG Methemoglobin 1.0 % (0.0-3.0) 09/30/18 14:48 Ryan Test Pos 09/30/18 14:48 Hgb O2 Saturation 95.3 % (95.0-98.0) 09/30/18 14:48 Sodium 133 mmol/L (132-148) 10/04/18 08:15 Potassium 4.0 mmol/L (3.6-5.2) 10/04/18 08:15 Chloride 94 mmol/L (98-107) L 10/04/18 08:15 Carbon Dioxide 27 mmol/L (22-30) 10/04/18 08:15 Anion Gap 16 (10-20) 10/04/18 08:15 BUN 14 mg/dL (7-17) 10/04/18 08:15 Creatinine 0.7 mg/dL (0.7-1.2) 10/04/18 08:15 Est GFR ( Amer) > 60 10/04/18 08:15 Est GFR (Non-Af Amer) > 60 10/04/18 08:15 POC Glucose (mg/dL) 232 mg/dL (65-110) H 10/04/18 11:23 Random Glucose 205 mg/dL (65-105) H 10/04/18 08:15 Hemoglobin A1c 9.4 % (4.2-6.5) H 10/02/18 06:41 Calcium 9.4 mg/dl (8.6-10.4) 10/04/18 08:15 Phosphorus 2.7 mg/dL (2.5-4.5) 10/04/18 08:15 Magnesium 1.9 mg/dL (1.6-2.3) 10/04/18 08:15 Total Bilirubin 0.7 mg/dL (0.2-1.3) 10/04/18 08:15 AST 38 U/L (14-36) H D 10/04/18 08:15 ALT 21 U/L (9-52) 10/04/18 08:15 Alkaline Phosphatase 109 U/L (38-126) 10/04/18 08:15 Total Creatine Kinase 59 U/L (30-135) 10/01/18 05:00 CK-MB (Mass) 0.95 ng/mL (0.0-3.38) 10/01/18 05:00 Troponin I 0.0160 ng/mL (0.00-0.120) 10/01/18 05:00 C-Reactive Protein 16.30 mg/L (0.0-9.9) H 09/30/18 16:40 Total Protein 7.4 g/dL (6.3-8.3) 10/04/18 08:15 Albumin 4.5 g/dL (3.5-5.0) 10/04/18 08:15 Globulin 3.0 gm/dL (2.2-3.9) 10/04/18 08:15 Albumin/Globulin Ratio 1.5 (1.0-2.1) 10/04/18 08:15 Triglycerides 218 mg/dL (0-149) H 10/02/18 06:46 Cholesterol 141 mg/dL (0-199) 10/02/18 06:46 LDL Cholesterol Direct 96 mg/dL (0-129) 10/02/18 06:46 HDL Cholesterol 30 mg/dL (30-70) 10/02/18 06:46 Lipase 359 U/L (23-300) H 09/30/18 12:55 Procalcitonin < 0.05 NG/ML (0.19-0.49) L 10/01/18 16:12 Urine Color Straw (YELLOW) 09/30/18 13:08 Urine Clarity Clear (Clear) 09/30/18 13:08 Urine pH 5.0 (5.0-8.0) 09/30/18 13:08 Ur Specific [place] 1.029 (1.003-1.030) 09/30/18 13:08 Urine Protein 1+ mg/dL (NEGATIVE) H 09/30/18 13:08 Urine Glucose (UA) 3+ mg/dL (Normal) H 09/30/18 13:08 Urine Ketones 2+ mg/dL (NEGATIVE) H 09/30/18 13:08 Urine Blood Negative (NEGATIVE) 09/30/18 13:08 Urine Nitrate Negative (NEGATIVE) 09/30/18 13:08 Urine Bilirubin Negative (NEGATIVE) 09/30/18 13:08 Urine Urobilinogen Normal mg/dL (0.2-1.0) 09/30/18 13:08 Ur Leukocyte Esterase Neg [place]vel[place]/uL (Negative) 09/30/18 13:08 Urine WBC (Auto) < 1 /hpf (0-5) 09/30/18 13:08 Urine RBC (Auto) < 1 /hpf (0-3) 09/30/18 13:08 Ur Squamous Epith Cells 2 /hpf (0-5) 09/30/18 13:08 Hyaline Casts 0-2 /lpf (0-2) 09/30/18 13:08 B-Hydroxybutyrate 0.79 mM (0.02-0.27) H 09/30/18 17:47 Influenza Typ A,B (EIA) Negative for flu a/b (NEGATIVE) 09/30/18 16:40 Attending/Attestation - Attestation I have personally seen and examined this patient.: Yes I have fully participated in the care of the patient.: Yes I have reviewed all pertinent clinical information, including history, physical exam and plan: Yes Notes (Text): Patient seen, examined and case discussed with electromedical equipment technician. patient seen and examined this morning. patient's nausea controlled, and improves after reglan. Per gi, not recommended for EGD in house; f/u outpatient her her GI. Patient to go back to her insulin regiment: humalog sliding scale, and levemir 40units subqHS; hold metfomin, f/u PMD; Dr. Dumont. Patient's blood pressure uncontrolled; increased her Lisinopril 40mg once a day on discharge. This is a summary of patient's hospitalization. Please refer EMR for full detail of record. Discharge Diagnoses: Diabetic Ketoacidosis, resolved Type 2 Diabetes Assessment/Plan * Anion gap has closed. Downgraded from the ICU 10/01/18 * Accuchecks QAC and HS * hgba1c is 9.4, uncontrolled * Novolog sliding scale qACHS * Hypoglycemic protocol * Levemir 40 unit SC HS and humalog sliding scale on d/c Intractable Nausea and Vomiting Assessment/Plan * CT abdomen/Pelvis with IV contrast (09/30/18): no ct evidence of pancreatitis. Suspicious for diffuse large bowel wall thickening which may represent pancolitis. No CT evidence of cholecystitis pancreatitis or high grade small bowel obstruction * elevated Lipase on admission (359) * Gi seen during hospitalization; does not warrant in house EGD * D/c on reglan 5mg PO Q6H PRN (one week supply) for nausea, and f/u with her GI in [place] on d/c Leukocytosis (normalized) Assessment/Plan * Procalcitonin <0.05 * Blood culture (09/30/18): negative for 3 days * MRSA Screen (09/30/18): negative * Urine culture (09/30/18): negative * Chest xray (09/30/18): no focal consolidation * ESR: 5 CRP: elevated * no abx on discharge History of Ulcerative Colitis Diarrhea, resolved Assessment/Plan * GI, Dr. Leon, consulted * CT abdomen/Pelvis with IV contrast (09/30/18): no ct evidence of pancreatitis. Suspicious for diffuse large bowel wall thickening which may represent pancolitis. No CT evidence of cholecystitis pancreatitis or high grade small bowel obstruction * completed Ciprofloxacin 400mg IV Q12H and Flagyl 500mg IVPB Q8H; no stool samples collected because patient is contipated. Hypertension, uncontrolled Assessment/Plan * d/c on Lisinopril 40mg PO daily; f/u bp in one week Lipid Disorder Assessment/Plan * Crestor 20mg POqHS * Lipid panel shows TG/CHL/LDL/HDL is 218/141/96/30 Abnormal EKG Assessment/Plan * EKG (10/01/18): normal sinus rhythm * Troponin x3 are normal * Echocardiogram 10/01 shows normal LV function. Grade 1 diastolic dysfunction- abnormal relaxation pattern. Elevated left atrial pressure Left atrium borderline dilated. Prophylactic measure Assessment/Plan * Florastor 250mg PO BID * Heparin 5000 unit [id number] * Protonix 40mg IV q daily * CLEARED FOR DAILY OOB TO CHAIR AND ROOM AMBULATION W. SUPERVISION. * Hypoglycemic protocol
--- NOTE | 2018-10-04 21:35 | CARD ---
APPROVED REPORT Date of service: 09/30/2018 EKG Measurement Heart [id number] <Conclusion> Normal sinus rhythm Normal ECG
--- NOTE | 2018-10-04 21:36 | CARD ---
APPROVED REPORT Date of service: 09/30/2018 EKG Measurement Heart [id number] <Conclusion> Sinus tachycardia Otherwise normal
[2018-10-05 16:05] VITALS: O2SAT 99
== END 2018-10-04 14:15 | disposition home or self-care (01) | DRG 638 ==
LOC: C.ER 12:09 → C.9I 14:24 → C.3T 10-01 17:06
PROVIDERS: ADMIT Hospitalist; ATTEND Hospitalist
DX: E11.10 Type 2 diabetes mellitus with ketoacidosis without coma (principal); K51.00 Ulcerative (chronic) pancolitis without complications; I10 Essential (primary) hypertension; D72.829 Elevated white blood cell count, unspecified; E66.9 Obesity, unspecified; E78.5 Hyperlipidemia, unspecified; Z79.4 Long term (current) use of insulin; Z87.891 Personal history of nicotine dependence; Z86.010 Personal history of colon polyps; Z82.3 Family history of stroke